=== PATIENT | female | born 1950 | race Caucasian/White ===

== ENCOUNTER 2019-03-28 19:43 | Inpatient (IN) ==
[2019-03-28] MEDS ORDERED: Ondansetron 4 MG/2 ML VIAL IVP ONE (20:00)
[2019-03-28] MEDS ORDERED: 0.9 % Sodium Chloride 1,000 ML IVC ONE (20:00)
[2019-03-28] MEDS ORDERED: Morphine Sulfate 2 MG/ML SYRINGE IVP ONE (20:00)
--- NOTE | 2019-03-28 20:03 | Emergency Department Note ---
Disposition Clinical Impression: Diverticulitis, Perforation bowel, Intra-abdominal abscess Disposition: Admitted As Inpatient Condition: Good Referrals: Lion Graves DO [Primary Care Provider] - Forms: ED Satisfaction Letter, Work/School Release Time of Disposition: 22:16 Abdominal Pain HPI - General Chief Complaint: ED Abdominal Pain Stated Complaint: ABD Pain Time Seen by Provider: 03/28/19 19:48 Source: patient, family Mode of arrival: private vehicle Limitations: no limitations Nursing Notes Reviewed: Yes Vital Signs Reviewed: Yes - History of Present Illness HPI Narrative: 68-year-old female with a past medical history of psoriasis and diabetes that reports approximately 1 week of right lower quadrant abdominal pain that initially started as all over her lower abdominal pain including the left lower quadrant and suprapubic areas but has now localized to the right lower quadrant. She has had a decreased appetite but has been trying to get fluids including broth. She also admits diarrhea for the last week that has been constant in nature, watery, but denies blood. No hx of diverticulitis. Pt was seen by her P CP on Friday and placed on flagyl and cipro without relief. She uses a topical cream for her psoriasis. She manages her diabetes with medication. Pain Scale: 4 - Related Data Home Medications Medication Instructions Recorded Confirmed Atorvastatin [Lipitor] 10 mg PO HS 03/28/19 03/28/19 Buspirone HCl [Buspar] 5 mg PO BID 03/28/19 03/28/19 Ciprofloxacin HCl [Cipro] 500 mg PO BID 03/28/19 03/28/19 Sertraline [Zoloft] 25 mg PO DAILY 03/28/19 03/28/19 SitaGLIPtin [Januvia] 100 mg PO BID 03/28/19 03/28/19 glyBURIDE [GlyBURIDE] 5 mg PO DAILY 03/28/19 03/28/19 metFORMIN [Glucophage] 500 mg PO BID 03/28/19 03/28/19 metroNIDAZOLE [Flagyl] 500 mg PO BID 03/28/19 03/28/19 Allergies Allergy/AdvReac Type Severity Reaction Status Date / Time No Known Allergies Allergy Verified 03/28/19 19:55 Review of Systems: In addition to that documented in the HPI above, the additional ROS was obtained: Constitutional: Denies fevers or chills Eyes: Denies vision changes ENMT: Denies sore throat CV: Denies chest pain Resp: Denies SOB GI: Denies vomiting Reports RLQ abdominal pain, diarrhea, anorexia : Denies painful urination MSK: Denies recent trauma Skin: Denies new rashes Reports chronic psoriasis Neuro: Denies new numbness or tingling or weakness Endocrine: Reports 10lb weight loss over the last week Heme: Denies bleeding disorders Abdominal Pain PMH - Past Medical History Medical history: Reports: diabetes Female Surgical History: Reports: no surgical history Psychiatric history: Reports: no psych history - Social History Smoking status: Never smoker Alcohol use: Reports: none Drug use: Reports: none Physical Exam General: A&O x 3. No acute distress. Appears uncomfortable. Well developed, well nourished. Head: atraumatic, normocephalic. ENT: No conjunctival injection, no scleral icterus. PERRLA. EOMI. Oropharynx non- erythematous. mucous membranes tacky. Neuro: No focal deficits, no speech deficit, no facial droop, mentating well. BUE/BLE Str 5/5. Pulm: Lungs CTAB A/P. No wheezes, rales, ronchi. Cardio: RRR no m/r/g. Chest not tender to palpation. Abd: Soft, non-distended. Normoactive bowel sounds. Tender to palpation diffusely, worst in RLQ. Voluntary guarding in RLQ. Non rigid. Palpable mass t hat is not well defined or discrete in LLQ - could be skin thickening. Extremities: Radial pulses 2+ desi, dorsalis pedis/posterior tibialis 2+ desi. No LE edema. No cyanosis, clubbing. Skin: warm, dry, intact. Chronic psoriasis with no active outbreaks noted. Psych: Appropriate mood and affect. Answers questions appropriately. Cooperative with exam. - General Limitations: no limitations General appearance: alert Course - Consultations Consultation #1: My attending Dr. Valdivia spoke with Dr. Land from surgery who states there will be no surgical intervention at this time and recommended IV antibiotics, NPO, and they would see her on the floor. Time: 21:58 Vital Signs Temperature 97.8 F 03/28/19 19:45 Pulse Rate 92 03/28/19 19:45 Respiratory Rate 16 03/28/19 19:45 Blood Pressure 132/80 03/28/19 19:45 O2 Sat by Pulse Oximetry 96 03/28/19 19:45 Temperature 97.8 F 03/28/19 19:45 Pulse Rate 80 03/28/19 22:10 Respiratory Rate 20 03/28/19 22:10 Blood Pressure 105/52 03/28/19 22:10 O2 Sat by Pulse Oximetry 94 03/28/19 22:10 Oxygen Delivery Oxygen Delivery Room Air Abdominal Pain - MDM Narrative Medical decision making narrative: 68F with Pmhx of DM, psoriasis, that reports 1 week of RLQ that began Friday night. Pt has been on cipro/flagyl since Friday without relief. Will obtain CBC, BMP, LFTs, Lipase, CT of Abd/Pelvis. Will administer zofran and morphine. Disposition pending. 2108: Ct showed acute complicated diverticulitis with abscess formation and perforation. Will administer Zosyn, consult surgery, and admit to medicine. Surgery consult completed, see course notes for full details. 2215: Pt was admitted to Dr. De Anda, hospitalist, who agreed to accept the patient to his service. Results of the workup including any imaging and/or labwork was shared with the patient at bedside. Patient was given an opportunity to ask questions at bedside and all of their concerns were addressed. Patient verbalized understanding and agreement with plan of care. Pt remained stable while in the department. - Medical Records Medical records reviewed: Yes I reviewed the patient's medical records. - Lab Data Lab results reviewed: Yes I reviewed the patient's lab results. Result diagrams: 03/28/19 20:22 03/28/19 20:22 Lab Results 03/28/19 03/28/19 03/28/19 Range/Units 20:22 20:22 20:22 WBC 11.1 (4.3-11.1) K/mcL RBC 4.50 (3.82-4.97) M/mcL Hgb 10.3 L (11.5-15.4) g/dL Hct 34.3 L (35.3-44.9) % MCV 76.2 L (83.0-100.0) fL MCH 22.9 L (28.0-33.3) pg MCHC 30.0 L (31.6-35.5) g/dL RDW 15.1 H (11.5-14.5) % Plt Count 337 (140-400) K/mcL MPV 9.6 (9.4-12.4) fL Immature Gran % 1.1 (0-4) % Seg Neutrophils % 74.0 % Lymphocytes % 16.7 % Monocytes % 5.5 % Eosinophils % 2.3 % Basophils % 0.4 % Neutrophils # 8.2 (1.6-8.9) K/mcL Lymphocytes # 1.9 (0.6-4.6) K/mcL Monocytes # 0.6 (0.0-1.3) K/mcL Eosinophils # 0.3 (0.0-0.6) K/mcL Basophils # 0.0 (0.0-0.2) K/mcL PT (9.4-12.1) Seconds INR APTT (26.0-36.0) Seconds Sodium (136-145) mEq/L Potassium (3.5-5.1) mEq/L Chloride (98-107) mEq/L Carbon Dioxide (23-29) mEq/L BUN (8-23) mg/dL Creatinine (0.60-1.20) mg/dL Est GFR ( Amer) (> 60) Est GFR (Non-Af Amer) (> 60) BUN/Creatinine Ratio (6-26) Glucose (70-105) mg/dL Calculated Osmolality (280-300) Lactic Acid 1.8 (0.5-2.2) mmol/L Calcium (8.6-10.3) mg/dL Total Bilirubin (0.3-1.0) mg/dL Direct Bilirubin (0.0-0.2) mg/dL Indirect Bilirubin (0.0-1.2) mg/dL AST (13-39) Units/L ALT (7-52) Units/L Alkaline Phosphatase (34-104) Units/L Troponin I < 0.03 (< 0.04) ng/mL Serum Total Protein (6.4-8.9) g/dL Albumin (3.5-5.7) g/dL Globulin (2.4-3.5) g/dL Albumin/Globulin Ratio (1.1-2.2) Lipase (11-82) Units/L Urine Color (Yellow) Urine Clarity (Clear) Urine pH (5.0-8.0) pH Units Ur Specific [place] (1.010-1.025) Urine Protein (Neg-Trace) mg/dL Urine Glucose (UA) (Normal) mg/dL Urine Ketones (Negative) mg/dL Urine Blood (Negative) Urine Nitrite (Negative) Urine Bilirubin (Negative) Urine Urobilinogen (Normal) mg/dL Ur Leukocyte Esterase (Negative) Urine Microscopic RBC (0-3) per hpf Urine Microscopic WBC (0-3) per hpf Ur Squamous Epith Cells (None-Few) per lpf Uric Acid Crystals Urine Bacteria (None-Few) per hpf Hyaline Casts (None-Few) per lpf Ur Culture Indicated? (NO) 03/28/19 03/28/19 03/28/19 Range/Units 20:22 20:22 21:14 WBC (4.3-11.1) K/mcL RBC (3.82-4.97) M/mcL Hgb (11.5-15.4) g/dL Hct (35.3-44.9) % MCV (83.0-100.0) fL MCH (28.0-33.3) pg MCHC (31.6-35.5) g/dL RDW (11.5-14.5) % Plt Count (140-400) K/mcL MPV (9.4-12.4) fL Immature Gran % (0-4) % Seg Neutrophils % % Lymphocytes % % Monocytes % % Eosinophils % % Basophils % % Neutrophils # (1.6-8.9) K/mcL Lymphocytes # (0.6-4.6) K/mcL Monocytes # (0.0-1.3) K/mcL Eosinophils # (0.0-0.6) K/mcL Basophils # (0.0-0.2) K/mcL PT 12.6 H (9.4-12.1) Seconds INR 1.1 APTT 32.5 (26.0-36.0) Seconds Sodium 137 (136-145) mEq/L Potassium 3.4 L (3.5-5.1) mEq/L Chloride 108 H (98-107) mEq/L Carbon Dioxide 21 L (23-29) mEq/L BUN 9 (8-23) mg/dL Creatinine 0.71 (0.60-1.20) mg/dL Est GFR ( Amer) > 60 (> 60) Est GFR (Non-Af Amer) > 60 (> 60) BUN/Creatinine Ratio 13 (6-26) Glucose 77 (70-105) mg/dL Calculated Osmolality 281 (280-300) Lactic Acid (0.5-2.2) mmol/L Calcium 9.0 (8.6-10.3) mg/dL Total Bilirubin 0.2 L (0.3-1.0) mg/dL Direct Bilirubin 0.1 (0.0-0.2) mg/dL Indirect Bilirubin 0.1 (0.0-1.2) mg/dL AST 11 L (13-39) Units/L ALT 7 (7-52) Units/L Alkaline Phosphatase 71 (34-104) Units/L Troponin I (< 0.04) ng/mL Serum Total Protein 6.3 L (6.4-8.9) g/dL Albumin 3.3 L (3.5-5.7) g/dL Globulin 3.0 (2.4-3.5) g/dL Albumin/Globulin Ratio 1.1 (1.1-2.2) Lipase 30 (11-82) Units/L Urine Color [place] A (Yellow) Urine Clarity Clear (Clear) Urine pH 5.0 (5.0-8.0) pH Units Ur Specific [place] > 1.030 H (1.010-1.025) Urine Protein 30 H (Neg-Trace) mg/dL Urine Glucose (UA) 100 H (Normal) mg/dL Urine Ketones Trace H (Negative) mg/dL Urine Blood Negative (Negative) Urine Nitrite Positive A (Negative) Urine Bilirubin Negative (Negative) Urine Urobilinogen Normal (Normal) mg/dL Ur Leukocyte Esterase Small H (Negative) Urine Microscopic RBC 0-3 (0-3) per hpf Urine Microscopic WBC 15-30 H (0-3) per hpf Ur Squamous Epith Cells Many H (None-Few) per lpf Uric Acid Crystals Present Urine Bacteria None Seen (None-Few) per hpf Hyaline Casts Few (None-Few) per lpf Ur Culture Indicated? YES A (NO) - Radiology Data Radiology results reviewed: Yes I reviewed the patient's radiology results. Abdomen/Pelvis CT 03/28/19 20:52 IMPRESSION: 1. Acute inflammatory process in the distal sigmoid colon with diverticula compatible with acute diverticulitis, complicated by gross perforation and apparent abscess formation, however it is unclear whether there is also a loop of small bowel in this location. This could be further delineated with contrast-enhanced CT. 2. There is masslike enlargement of the sigmoid colon in this location with mildly prominent pericolonic lymph nodes. While this may be a secondary to the inflammatory process, short-term follow-up after completion of therapy with colonoscopy is recommended to exclude underlying mass. 3. 2.8 cm abdominal aortic aneurysm suspected. Bilateral common iliac artery aneurysms measuring up to 2 cm on the right and 1.5 cm on the left. Recommend follow-up every 5 years. Reference: J Vasc Surg 2009 Oct;50(4 Suppl):S2-49. D/ / Onofre Hyman / Onofre Hyman Interpreting Provider: Onofre Hyman - EKG Data EKG attestation: Yes I reviewed and interpreted this EKG. EKG results narrative: Heart rate 79, rhythm sinus, axis left. Intervals within normal limits. No ST segment elevation or depression. Baseline 100 noted in lead V5. When compared with previous EKG dated 01/19/2013 there is also a leftward axis.
[2019-03-28 20:57] LABS: Alanine Aminotransferase 7 Units/L (7-52); Albumin 3.3 g/dL (3.5-5.7); Albumin/Globulin Ratio 1.1 (1.1-2.2); Alkaline Phosphatase 71 Units/L (34-104); Aspartate Amino Transferase 11 Units/L (13-39); BUN/Creatinine Ratio 13 (6-26); Basophils % 0.4 %; Bilirubin,Direct 0.1 mg/dL (0.0-0.2); Bilirubin,Indirect 0.1 mg/dL (0.0-1.2); Bilirubin,Total 0.2 mg/dL (0.3-1.0); Blood Urea Nitrogen 9 mg/dL (8-23); Carbon Dioxide 21 mEq/L (23-29); Chloride 108 mEq/L (98-107); Eosinophils # 0.3 K/mcL (0.0-0.6); Eosinophils % 2.3 %; Glucose 77 mg/dL (70-105); Hematocrit 34.3 % (35.3-44.9); Hemoglobin 10.3 g/dL (11.5-15.4); Immature Granulocytes % 1.1 % (0-4); Lipase 30 Units/L (11-82); Lymphocytes # 1.9 K/mcL (0.6-4.6); Lymphocytes % 16.7 %; Mean Corpuscular Hemoglobin 22.9 pg (28.0-33.3); Mean Corpuscular Volume 76.2 fL (83.0-100.0); Mean Platelet Volume 9.6 fL (9.4-12.4); Monocytes # 0.6 K/mcL (0.0-1.3); Monocytes % 5.5 %; Neutrophils # 8.2 K/mcL (1.6-8.9); Osmolality,Calculated 281 (280-300); Platelet Count 337 K/mcL (140-400); Potassium 3.4 mEq/L (3.5-5.1); Red Cell Distribution Width 15.1 % (11.5-14.5); Sodium 137 mEq/L (136-145); Total Protein 6.3 g/dL (6.4-8.9); White Blood Count 11.1 K/mcL (4.3-11.1); eGFR For African Americans > 60 (> 60); eGFR For Non-African Americans > 60 (> 60)
[2019-03-28] MEDS ORDERED: Piperacillin/Tazobactam 3.375 GM in 0.9 % Sodium Chloride Mini Bag 100 ML IVPB ONE (21:12)
[2019-03-28 21:22] LABS: Bilirubin,Urine Negative (Negative); Blood,Urine Negative (Negative); Clarity,Urine Clear (Clear); Glucose,Urine (UA) 100 mg/dL (Normal); Ketones,Urine Trace mg/dL (Negative); Leukocyte Esterase,Urine Small (Negative); Nitrite,Urine Positive (Negative); Protein,Urine 30 mg/dL (Neg-Trace); Specific Gravity,Urine > 1.030 (1.010-1.025); Urobilinogen,Urine Normal (Normal)
[2019-03-28 21:24] LABS: Bacteria,Urine None Seen per hpf (None-Few); RBC,Urine 0-3 per hpf (0-3); Squamous Epithelial Cell,Urine Many per lpf (None-Few); WBC,Urine 15-30 per hpf (0-3)
[2019-03-28 21:32] LABS: Color,Urine Amber (Yellow)
[2019-03-28 21:36] LABS: INR 1.1; Prothrombin Time 12.6 Seconds (9.4-12.1)
[2019-03-28 21:39] LABS: Activated Partial Thrombo Time 32.5 Seconds (26.0-36.0)
[2019-03-28 21:48] LABS: Uric Acid Crystals,Urine Present
[2019-03-28 21:50] LABS: Hyaline Casts,Urine Few per lpf (None-Few)
--- NOTE | 2019-03-28 22:00 | Emergency Department Note ---
Disposition Clinical Impression: Diverticulitis, Perforation bowel, Intra-abdominal abscess Disposition: Admitted As Inpatient Condition: Good Forms: ED Satisfaction Letter, Work/School Release Time of Disposition: 22:00 General Adult HPI - General Chief complaint: ED Abdominal Pain Stated complaint: ABD Pain Time Seen by Provider: 03/28/19 19:48 Source: patient, family Mode of arrival: private vehicle Limitations: no limitations - History of Present Illness Pain Scale: 3 - Related Data Home Medications Medication Instructions Recorded Confirmed Atorvastatin [Lipitor] 10 mg PO HS 03/28/19 03/28/19 Buspirone HCl [Buspar] 5 mg PO BID 03/28/19 03/28/19 Ciprofloxacin HCl [Cipro] 500 mg PO BID 03/28/19 03/28/19 Sertraline [Zoloft] 25 mg PO DAILY 03/28/19 03/28/19 SitaGLIPtin [Januvia] 100 mg PO BID 03/28/19 03/28/19 glyBURIDE [GlyBURIDE] 5 mg PO DAILY 03/28/19 03/28/19 metFORMIN [Glucophage] 500 mg PO BID 03/28/19 03/28/19 metroNIDAZOLE [Flagyl] 500 mg PO BID 03/28/19 03/28/19 Allergies Allergy/AdvReac Type Severity Reaction Status Date / Time No Known Allergies Allergy Verified 03/28/19 19:55 Past Medical History - Past Medical History Medical history: Reports: diabetes Psychiatric history: Reports: no psych history - Social History Smoking Status: Never smoker Smokeless Tobacco Status: No Alcohol use: Reports: none Drug use: Reports: none Physical Exam - General Limitations: no limitations General appearance: alert Course - Consultations Consultation #1: discussed case with surgery Dr. Land and he does think this patient requires surgical intervention at this time. He will see in consult with admission to [facility]. Time: 21:59 Vital Signs Temperature 97.8 F 03/28/19 19:45 Pulse Rate 92 03/28/19 19:45 Respiratory Rate 16 03/28/19 19:45 Blood Pressure 132/80 03/28/19 19:45 O2 Sat by Pulse Oximetry 96 03/28/19 19:45 Temperature 97.8 F 03/28/19 19:45 Pulse Rate 82 03/28/19 21:14 Respiratory Rate 20 03/28/19 21:14 Blood Pressure 100/48 03/28/19 21:14 O2 Sat by Pulse Oximetry 98 03/28/19 21:14 Oxygen Delivery Oxygen Delivery Room Air Medical Decision Making - Lab Data Result diagrams: 03/28/19 20:22 03/28/19 20:22 Lab Results 03/28/19 03/28/19 03/28/19 Range/Units 20:22 20:22 20:22 WBC 11.1 (4.3-11.1) K/mcL RBC 4.50 (3.82-4.97) M/mcL Hgb 10.3 L (11.5-15.4) g/dL Hct 34.3 L (35.3-44.9) % MCV 76.2 L (83.0-100.0) fL MCH 22.9 L (28.0-33.3) pg MCHC 30.0 L (31.6-35.5) g/dL RDW 15.1 H (11.5-14.5) % Plt Count 337 (140-400) K/mcL MPV 9.6 (9.4-12.4) fL Immature Gran % 1.1 (0-4) % Seg Neutrophils % 74.0 % Lymphocytes % 16.7 % Monocytes % 5.5 % Eosinophils % 2.3 % Basophils % 0.4 % Neutrophils # 8.2 (1.6-8.9) K/mcL Lymphocytes # 1.9 (0.6-4.6) K/mcL Monocytes # 0.6 (0.0-1.3) K/mcL Eosinophils # 0.3 (0.0-0.6) K/mcL Basophils # 0.0 (0.0-0.2) K/mcL PT (9.4-12.1) Seconds INR APTT (26.0-36.0) Seconds Sodium (136-145) mEq/L Potassium (3.5-5.1) mEq/L Chloride (98-107) mEq/L Carbon Dioxide (23-29) mEq/L BUN (8-23) mg/dL Creatinine (0.60-1.20) mg/dL Est GFR ( Amer) (> 60) Est GFR (Non-Af Amer) (> 60) BUN/Creatinine Ratio (6-26) Glucose (70-105) mg/dL Calculated Osmolality (280-300) Lactic Acid 1.8 (0.5-2.2) mmol/L Calcium (8.6-10.3) mg/dL Total Bilirubin (0.3-1.0) mg/dL Direct Bilirubin (0.0-0.2) mg/dL Indirect Bilirubin (0.0-1.2) mg/dL AST (13-39) Units/L ALT (7-52) Units/L Alkaline Phosphatase (34-104) Units/L Troponin I < 0.03 (< 0.04) ng/mL Serum Total Protein (6.4-8.9) g/dL Albumin (3.5-5.7) g/dL Globulin (2.4-3.5) g/dL Albumin/Globulin Ratio (1.1-2.2) Lipase (11-82) Units/L Urine Color (Yellow) Urine Clarity (Clear) Urine pH (5.0-8.0) pH Units Ur Specific [place] (1.010-1.025) Urine Protein (Neg-Trace) mg/dL Urine Glucose (UA) (Normal) mg/dL Urine Ketones (Negative) mg/dL Urine Blood (Negative) Urine Nitrite (Negative) Urine Bilirubin (Negative) Urine Urobilinogen (Normal) mg/dL Ur Leukocyte Esterase (Negative) Urine Microscopic RBC (0-3) per hpf Urine Microscopic WBC (0-3) per hpf Ur Squamous Epith Cells (None-Few) per lpf Uric Acid Crystals Urine Bacteria (None-Few) per hpf Hyaline Casts (None-Few) per lpf Ur Culture Indicated? (NO) 03/28/19 03/28/19 03/28/19 Range/Units 20:22 20:22 21:14 WBC (4.3-11.1) K/mcL RBC (3.82-4.97) M/mcL Hgb (11.5-15.4) g/dL Hct (35.3-44.9) % MCV (83.0-100.0) fL MCH (28.0-33.3) pg MCHC (31.6-35.5) g/dL RDW (11.5-14.5) % Plt Count (140-400) K/mcL MPV (9.4-12.4) fL Immature Gran % (0-4) % Seg Neutrophils % % Lymphocytes % % Monocytes % % Eosinophils % % Basophils % % Neutrophils # (1.6-8.9) K/mcL Lymphocytes # (0.6-4.6) K/mcL Monocytes # (0.0-1.3) K/mcL Eosinophils # (0.0-0.6) K/mcL Basophils # (0.0-0.2) K/mcL PT 12.6 H (9.4-12.1) Seconds INR 1.1 APTT 32.5 (26.0-36.0) Seconds Sodium 137 (136-145) mEq/L Potassium 3.4 L (3.5-5.1) mEq/L Chloride 108 H (98-107) mEq/L Carbon Dioxide 21 L (23-29) mEq/L BUN 9 (8-23) mg/dL Creatinine 0.71 (0.60-1.20) mg/dL Est GFR ( Amer) > 60 (> 60) Est GFR (Non-Af Amer) > 60 (> 60) BUN/Creatinine Ratio 13 (6-26) Glucose 77 (70-105) mg/dL Calculated Osmolality 281 (280-300) Lactic Acid (0.5-2.2) mmol/L Calcium 9.0 (8.6-10.3) mg/dL Total Bilirubin 0.2 L (0.3-1.0) mg/dL Direct Bilirubin 0.1 (0.0-0.2) mg/dL Indirect Bilirubin 0.1 (0.0-1.2) mg/dL AST 11 L (13-39) Units/L ALT 7 (7-52) Units/L Alkaline Phosphatase 71 (34-104) Units/L Troponin I (< 0.04) ng/mL Serum Total Protein 6.3 L (6.4-8.9) g/dL Albumin 3.3 L (3.5-5.7) g/dL Globulin 3.0 (2.4-3.5) g/dL Albumin/Globulin Ratio 1.1 (1.1-2.2) Lipase 30 (11-82) Units/L Urine Color [place] A (Yellow) Urine Clarity Clear (Clear) Urine pH 5.0 (5.0-8.0) pH Units Ur Specific [place] > 1.030 H (1.010-1.025) Urine Protein 30 H (Neg-Trace) mg/dL Urine Glucose (UA) 100 H (Normal) mg/dL Urine Ketones Trace H (Negative) mg/dL Urine Blood Negative (Negative) Urine Nitrite Positive A (Negative) Urine Bilirubin Negative (Negative) Urine Urobilinogen Normal (Normal) mg/dL Ur Leukocyte Esterase Small H (Negative) Urine Microscopic RBC 0-3 (0-3) per hpf Urine Microscopic WBC 15-30 H (0-3) per hpf Ur Squamous Epith Cells Many H (None-Few) per lpf Uric Acid Crystals Present Urine Bacteria None Seen (None-Few) per hpf Hyaline Casts Few (None-Few) per lpf Ur Culture Indicated? YES A (NO) Attestation Statement - Attestation Attestation: I reviewed the residents documentation and agree with the residents assessment and plan of care. I have personally had face to face time with the patient. (Brief History, Brief Exam, and MDM) I personally supervised and was present for the oneil/critical portions of the following procedures completed by the resident: EKG 68 year old female presents to the ED with complaints of abdominal pain and inabilit to tolerate PO seocndary to failing outpatinet ABX therapy for diveriticulitis. It appears on CT scan that she has acute diveriticulitis with perofration of the small bowel and [id number] abscess formation without signs of bowel obstruction. Discussed case with Dr. Land from surgery and state that nereyda will not need surgical intervention at this time. Admit to medicine with IV ABX
[2019-03-28] MEDS ORDERED: Naloxone 0.4 MG/ML INJ IVP PRN (23:44)
[2019-03-28] MEDS ORDERED: Ondansetron ODT 4 MG TAB.RAPDIS SL PRN (23:44)
[2019-03-28] MEDS ORDERED: Ringers Solution, Lactated 1,000 ML IVC SCH (23:45)
[2019-03-28] MEDS ORDERED: *HR* Dextrose 50 % in Water (Syg) 50 ML SYRINGE IVP PRN (23:49)
[2019-03-28] MEDS ORDERED: D5% in Water 1,000 ML IVC PRN (23:49)
[2019-03-28] MEDS ORDERED: Dextrose Gel 15 GM/37.5 ML TUBE PO PRN ×2 (23:49)
--- NOTE | 2019-03-28 23:51 | Internal Med History&Physical ---
Date of Encounter: 03/29/19 Time of Encounter: 23:51 Internal Medicine - H&P: HPI Chief complaint: abdominal pain Admitted From: Home Plans for Post Hospital Care: Home History of present illness: Ms. Aragon is a 68 year old female with past medical history of type 2 diabetes, hyperlipidemia, depression presented to ED for abdominal pain.Face to face encounter occurred at 11:pm. Patient reported abdominal pain occurred one week ago suddenly right-sided nonradiating sharp 10/10 at the time and no alleviating or exacerbating factor.No association of nausea, vomiting, chest pain, shortness of breath. Patient went to the PCP on Friday and was started on oral ciprofloxacin and metronidazole. Patient reported compliance with medication with improvement of the abdominal pain then suddenly today worsened symptoms and longer duration and thus came to the ED. Patient also reported after starting oral antibiotics reported diarrhea watery more than 10 times daily. Patient reported able to tolerate oral intake and medications. Reviewed patient's past medical, surgical, family and social history. Patient continues nonsmoking cord or drugs. On surgery was on the right wrist years ago, denied family history of colon cancer, diverticulitis or CA. CODE STATUS verified to be Full code. Past Med Surg Social Fam HX - Past Medical History Medical history: diabetes Psychiatric history: no psych history - Social History Smoking Status: Never smoker Smokeless Tobacco Status: No Alcohol use: none Drug use: none Internal Medicine - H&P: Meds Atorvastatin [Lipitor] 10 mg PO HS 03/28/19 [History] Buspirone HCl [Buspar] 5 mg PO BID 03/28/19 [History] Ciprofloxacin HCl [Cipro] 500 mg PO BID 03/28/19 [History] Sertraline [Zoloft] 25 mg PO DAILY 03/28/19 [History] SitaGLIPtin [Januvia] 100 mg PO BID 03/28/19 [History] glyBURIDE [GlyBURIDE] 5 mg PO DAILY 03/28/19 [History] metFORMIN [Glucophage] 500 mg PO BID 03/28/19 [History] metroNIDAZOLE [Flagyl] 500 mg PO BID 03/28/19 [History] Allergy/AdvReac Type Severity Reaction Status Date / Time No Known Allergies Allergy Verified 03/28/19 19:55 All Systems PM: A 10-system review of systems was performed and is negative for pertinent findings except as documented above in the HPI. Review of systems: General: No unintentional weightloss, No fever Head: No headahce, No injury. Ears: No discharge, No earache Eyes: No drainage, No eye pain Mouth and Throat: No new ulcers, No pain Nose and Sinus: No new congestion, No pain, Respiratory: No cough, No sputum production, No dyspnea Cardiovascular: No chest pain, No palpitations. Gastrointestinal: No nausea, No vomiting. + abdominal pain. Genital Tract: No discharge, No pain Urinary Tract: No dysuria, No discharge. MSK: No new/worsening joint pain, No new/worsening muscle ache. Endocrine: No cold intolerance, No polyuria Psychological: No suicidal, No homocidal ideation. - Constitutional Vitals: Temp Pulse Resp BP Pulse Ox 98.2 F 77 17 102/65 94 03/28/19 23:15 03/28/19 23:15 03/28/19 23:15 03/28/19 23:15 03/28/19 23:15 Exam: General Appearance: Appearing as age, well-nourished in mild acute distress. Head:Atraumatic normocephalic Skin: Normal texture, normal turgor, warm, dry. Eyes: Conjunctivae not pale with no erythema, drainage, or ulcers. Anicteric. Neck: No Lymphadenopathy in the anterior/posterior cervical chain. No thyromegaly, masses or ulcers. Trachea midline. Heart: RRR, no murmurs. Capillary refill 3 seconds. Lungs: No accessory muscle usage, lungs clear to auscultation bilaterally, no wheezes or crackles. Extremities: No pitting edema, No clubbing, No cyanosis. Abdomen: Non-distended, Normoactive bowel sounds. RLQ tender to palpation. no rovsing sign, no obturator, no hobbs sign. no guarding Neuro: AOx3 with no new sensory loss or focal deficits. MSK: Strength 5/5 Upper extremity equal bilaterally. Strength 5/5 Lower extremity equal bilaterally Internal Med - H&P Results - Labs CBC & Chem 7: 03/28/19 20:22 03/28/19 20:22 Labs: Short CBC 03/28/19 Range/Units 20:22 WBC 11.1 (4.3-11.1) K/mcL Hgb 10.3 L (11.5-15.4) g/dL Hct 34.3 L (35.3-44.9) % Plt Count 337 (140-400) K/mcL Neutrophils # 8.2 (1.6-8.9) K/mcL BMP 03/28/19 20:22 Sodium 137 Potassium 3.4 L Chloride 108 H Carbon Dioxide 21 L BUN 9 Creatinine 0.71 Glucose 77 Calcium 9.0 Cardiac Enzymes 03/28/19 Range/Units 20:22 Troponin I < 0.03 (< 0.04) ng/mL Liver Function 03/28/19 Range/Units 20:22 Total Bilirubin 0.2 L (0.3-1.0) mg/dL Direct Bilirubin 0.1 (0.0-0.2) mg/dL AST 11 L (13-39) Units/L ALT 7 (7-52) Units/L Alkaline Phosphatase 71 (34-104) Units/L Albumin 3.3 L (3.5-5.7) g/dL Urine 03/28/19 Range/Units 21:14 Urine Color Majo A (Yellow) Urine Clarity Clear (Clear) Urine pH 5.0 (5.0-8.0) pH Units Ur Specific [place] > 1.030 H (1.010-1.025) Urine Protein 30 H (Neg-Trace) mg/dL Urine Glucose (UA) 100 H (Normal) mg/dL - Impressions ITS Impressions Abdomen/Pelvis CT 03/28/19 20:52 IMPRESSION: 1. Acute inflammatory process in the distal sigmoid colon with diverticula compatible with acute diverticulitis, complicated by gross perforation and apparent abscess formation, however it is unclear whether there is also a loop of small bowel in this location. This could be further delineated with contrast-enhanced CT. 2. There is masslike enlargement of the sigmoid colon in this location with mildly prominent pericolonic lymph nodes. While this may be a secondary to the inflammatory process, short-term follow-up after completion of therapy with colonoscopy is recommended to exclude underlying mass. 3. 2.8 cm abdominal aortic aneurysm suspected. Bilateral common iliac artery aneurysms measuring up to 2 cm on the right and 1.5 cm on the left. Recommend follow-up every 5 years. Reference: J Vasc Surg 2009 Apr;50(4 Suppl):S2-49. D/ / Onofre Hyman / Onofre Hyman Interpreting Provider: Onofre Hyman - Summary of Assessment and Plan Summary of Assessment and Plan: 1.Acute complicated diverticulitis: Etiology unclear patient has not had a colonoscopy in the past however has one scheduled in April 16. Elevated with abscess and a gross perforation. Surgery on board IV Zosyn, IVF. 2.Microcytic anemia: No signs of bleeding. Anemia panel ordered. 3.Hypokalemia: replaced 4.Dehydration and malnutrition: Nutrition consultation and IVF DVT prophylaxis: Heparin Ximena: Likely more than 2 day stay - Time Spent With Patient Total time spent is greater than 38minutes 50% in coordination of care (as documented) at patient's floor/unit and/or counseling patient: Greater than 35 minutes
[2019-03-29 00:34] LABS: Basophils # 0.1 K/mcL (0.0-0.2); Basophils % 0.6 %; Eosinophils # 0.2 K/mcL (0.0-0.6); Eosinophils % 1.6 %; Hematocrit 30.9 % (35.3-44.9); Hemoglobin 9.3 g/dL (11.5-15.4); Immature Granulocytes % 1.5 % (0-4); Lymphocytes # 1.8 K/mcL (0.6-4.6); Lymphocytes % 17.2 %; Mean Corpuscular HGB Conc 30.1 g/dL (31.6-35.5); Mean Corpuscular Hemoglobin 23.4 pg (28.0-33.3); Mean Corpuscular Volume 77.8 fL (83.0-100.0); Mean Platelet Volume 9.7 fL (9.4-12.4); Monocytes # 0.5 K/mcL (0.0-1.3); Monocytes % 5.2 %; Neutrophils # 7.7 K/mcL (1.6-8.9); Platelet Count 300 K/mcL (140-400); Red Blood Count 3.97 M/mcL (3.82-4.97); Segmented Neutrophils % 73.9 %; White Blood Count 10.4 K/mcL (4.3-11.1)
[2019-03-29 00:50] LABS: BUN/Creatinine Ratio 12 (6-26); Blood Urea Nitrogen 8 mg/dL (8-23); Calcium 7.9 mg/dL (8.6-10.3); Carbon Dioxide 18 mEq/L (23-29); Chloride 113 mEq/L (98-107); Chol/HDL Ratio 2.7 (0-4.9); Cholesterol 60 mg/dL (< 200); Glucose 60 mg/dL (70-105); HDL Cholesterol 22 mg/dL (40-59); LDL Cholesterol,Calculated -9 mg/dL (0-99); Magnesium 1.7 mg/dL (1.6-2.6); Osmolality,Calculated 286 (280-300); Phosphorous 3.4 mg/dL (2.7-4.5); Potassium 3.3 mEq/L (3.5-5.1); Sodium 140 mEq/L (136-145); Triglycerides 234 mg/dL (< 150); eGFR For African Americans > 60 (> 60); eGFR For Non-African Americans > 60 (> 60)
[2019-03-29] MEDS: Insulin LISPRO 300 UNITS/3 ML VIAL SQ SCH ×4 (01:17→17:16)
[2019-03-29 05:55] LABS: Retculocyte # 0.06 M/mcL (0.05-0.10); Reticulocyte % 1.5 % (1.6-2.8)
[2019-03-29 06:10] LABS: % Iron Saturation 6 % (15-50); Iron 12 mcg/dL (50-170); Transferrin 136 mg/dL (203-362)
[2019-03-29 06:26] LABS: Ferritin 12 ng/mL (10-120)
--- NOTE | 2019-03-29 09:01 | AcuteCare Surgery Consult Note ---
Date of Encounter: 03/29/19 Time of Encounter: 07:45 Assessment and Plan (1) Diverticulitis Current Visit: Yes Status: Acute The patient appears to have acute diverticulitis associated with a diverticular abscess next to the urinary bladder. Unfortunately, this is also associated with urinary tract infection which may indicate colovesical fistula. Continue broad-spectrum antibiotics and reevaluate with CAT scan of the abdomen in 3-4 days to evaluate the abscess for resolution or progression. If the patient develops pneumaturia, cystogram or barium enema may be helpful in establishing a diagnosis History of Present Illness Consult date: 03/29/19 Reason for consult: abdominal pain History of present illness: The patient is seen and evaluated on morning rounds with the acute care surgery team. She is complaining of right lower quadrant and central abdominal pain for 1 week. She sought evaluation in the emergency room. Her white blood cell count is normal, however, CAT scan demonstrated an abscess associated with diverticulitis. The abscess is 3 cm in size. The location the abscess is adjacent to the urinary bladder raising the possibility of colovesical fistula. The patient does have a urinary tract infection. She denies pneumaturia. The patient states that her abdominal pain is better today than it was yesterday. White blood cell count remains normal. She has not previously had episodes of diverticular disease she is currently on appropriate broad-spectrum antibiotics. Next We will recommend continuing with conservative therapy and broad-spectrum antibiotics. She should have a follow-up CAT scan in the abdomen in 3-4 days to evaluate progression or resolution of the abscess. White blood cell count evaluation is less useful since she is currently in normal range. Past Med Surg Social Fam HX - Past Medical History Medical history: diabetes Additional medical history: psoriasis Psychiatric history: anxiety, depression - Social History Smoking Status: Never smoker Smokeless Tobacco Status: No Alcohol use: none Drug use: none Medications and Allergies Atorvastatin [Lipitor] 10 mg PO HS 03/28/19 [History] Buspirone HCl [Buspar] 5 mg PO BID 03/28/19 [History] Ciprofloxacin HCl [Cipro] 500 mg PO BID 03/28/19 [History] Sertraline [Zoloft] 25 mg PO DAILY 03/28/19 [History] SitaGLIPtin [Januvia] 100 mg PO BID 03/28/19 [History] glyBURIDE [GlyBURIDE] 5 mg PO DAILY 03/28/19 [History] metFORMIN [Glucophage] 500 mg PO BID 03/28/19 [History] metroNIDAZOLE [Flagyl] 500 mg PO BID 03/28/19 [History] Allergy/AdvReac Type Severity Reaction Status Date / Time No Known Allergies Allergy Verified 03/28/19 19:55 Review of Systems All systems PM: The remainder of the systems were reviewed and are negative General Surgery Exam Initial Vital Signs Temp Pulse Resp BP Pulse Ox 97.8 F 92 16 132/80 96 03/28/19 19:45 03/28/19 19:45 03/28/19 19:45 03/28/19 19:45 03/28/19 19:45 - General physical appearance well developed, well nourished, moderate pain - Neck no masses, no bruits, trachea midline, no lymphadectomy - Respiratory normal expansion, normal respiratory effort, clear to auscultation - Cardiovascular Cardiovascular exam: Present: RRR, no murmurs/rubs/gallops - Abdomen Abdomen general surgery: Present: bowel sounds present, tender Abdominal Tenderness: Present: RLQ (Mild tenderness with no involuntary guarding. No central abdominal tenderness) - Neurologic Present: CN 2-12 grossly intact, normal coordination, normal sensation - Psychiatric Psychiatric general surgery: Present: A&Ox3, oriented to person, oriented to place, oriented to time Exam Initial Vital Signs Temp Pulse Resp BP Pulse Ox 97.8 F 92 16 132/80 96 03/28/19 19:45 03/28/19 19:45 03/28/19 19:45 03/28/19 19:45 03/28/19 19:45 Results - Labs 03/29/19 00:19 03/29/19 00:19 Abnormal lab results Hgb 9.3 g/dL (11.5-15.4) L 03/29/19 00:19 Hct 30.9 % (35.3-44.9) L 03/29/19 00:19 MCV 77.8 fL (83.0-100.0) L 03/29/19 00:19 MCH 23.4 pg (28.0-33.3) L 03/29/19 00:19 MCHC 30.1 g/dL (31.6-35.5) L 03/29/19 00:19 RDW 15.0 % (11.5-14.5) H 03/29/19 00:19 Percent Retic 1.5 % (1.6-2.8) L 03/29/19 05:08 Retic Hgb Equivalent 23.6 pg (28.61-36.33) L 03/29/19 05:08 PT 12.6 Seconds (9.4-12.1) H 03/28/19 20:22 Potassium 3.3 mEq/L (3.5-5.1) L 03/29/19 00:19 Chloride 113 mEq/L (98-107) H 03/29/19 00:19 Carbon Dioxide 18 mEq/L (23-29) L 03/29/19 00:19 Glucose 60 mg/dL (70-105) L 03/29/19 00:19 Calcium 7.9 mg/dL (8.6-10.3) L 03/29/19 00:19 Iron 12 mcg/dL (50-170) L 03/29/19 05:08 % Saturation 6 % (15-50) L 03/29/19 05:08 Transferrin 136 mg/dL (203-362) L 03/29/19 05:08 Total Bilirubin 0.2 mg/dL (0.3-1.0) L 03/28/19 20:22 AST 11 Units/L (13-39) L 03/28/19 20:22 Serum Total Protein 6.3 g/dL (6.4-8.9) L 03/28/19 20:22 Albumin 3.3 g/dL (3.5-5.7) L 03/28/19 20:22 Triglycerides 234 mg/dL (< 150) H 03/29/19 00:19 LDL Cholesterol, Calc -9 mg/dL (0-99) L 03/29/19 00:19 VLDL Cholesterol, Calc 47 mg/dL (< 31) H 03/29/19 00:19 HDL Cholesterol 22 mg/dL (40-59) L 03/29/19 00:19 Urine Color Majo (Yellow) A 03/28/19 21:14 Ur Specific [place] > 1.030 (1.010-1.025) H 03/28/19 21:14 Urine Protein 30 mg/dL (Neg-Trace) H 03/28/19 21:14 Urine Glucose (UA) 100 mg/dL (Normal) H 03/28/19 21:14 Urine Ketones Trace mg/dL (Negative) H 03/28/19 21:14 Urine Nitrite Positive (Negative) A 03/28/19 21:14 Ur Leukocyte Esterase Small (Negative) H 03/28/19 21:14 Urine Microscopic WBC 15-30 per hpf (0-3) H 03/28/19 21:14 Ur Squamous Epith Cells Many per lpf (None-Few) H 03/28/19 21:14 Ur Culture Indicated? YES (NO) A 03/28/19 21:14 Diabetes panel 03/28/19 03/29/19 Range/Units 20:22 00:19 Sodium 137 140 (136-145) mEq/L Potassium 3.4 L 3.3 L (3.5-5.1) mEq/L Chloride 108 H 113 H (98-107) mEq/L Carbon Dioxide 21 L 18 L (23-29) mEq/L BUN 9 8 (8-23) mg/dL Creatinine 0.71 0.67 (0.60-1.20) mg/dL Glucose 77 60 L (70-105) mg/dL Calcium 9.0 7.9 L (8.6-10.3) mg/dL AST 11 L (13-39) Units/L ALT 7 (7-52) Units/L Alkaline Phosphatase 71 (34-104) Units/L Albumin 3.3 L (3.5-5.7) g/dL Triglycerides 234 H (< 150) mg/dL HDL Cholesterol 22 L (40-59) mg/dL Calcium panel 03/28/19 03/29/19 Range/Units 20:22 00:19 Calcium 9.0 7.9 L (8.6-10.3) mg/dL Phosphorus 3.4 (2.7-4.5) mg/dL Albumin 3.3 L (3.5-5.7) g/dL Pituitary panel 03/28/19 03/29/19 Range/Units 20:22 00:19 Sodium 137 140 (136-145) mEq/L Potassium 3.4 L 3.3 L (3.5-5.1) mEq/L Chloride 108 H 113 H (98-107) mEq/L Carbon Dioxide 21 L 18 L (23-29) mEq/L BUN 9 8 (8-23) mg/dL Creatinine 0.71 0.67 (0.60-1.20) mg/dL Glucose 77 60 L (70-105) mg/dL Calcium 9.0 7.9 L (8.6-10.3) mg/dL Adrenal panel 03/28/19 03/29/19 Range/Units 20:22 00:19 Sodium 137 140 (136-145) mEq/L Potassium 3.4 L 3.3 L (3.5-5.1) mEq/L Chloride 108 H 113 H (98-107) mEq/L Carbon Dioxide 21 L 18 L (23-29) mEq/L BUN 9 8 (8-23) mg/dL Creatinine 0.71 0.67 (0.60-1.20) mg/dL Glucose 77 60 L (70-105) mg/dL Calcium 9.0 7.9 L (8.6-10.3) mg/dL Total Bilirubin 0.2 L (0.3-1.0) mg/dL AST 11 L (13-39) Units/L ALT 7 (7-52) Units/L Alkaline Phosphatase 71 (34-104) Units/L Albumin 3.3 L (3.5-5.7) g/dL All other labs normal. - Imaging CT scan - abdomen: image reviewed (I personally reviewed the CAT scan and the abdomen. Findings are consistent with diverticulitis with diverticular abscess adjacent to the urinary bladder. The abscess is about 3 cm in size. On initial evaluation, the abscess does not appear amenable to CAT scan drainage) Consult Discharge Plan - Plan Referrals: ColopyLion DO [Primary Care Provider] -
[2019-03-29 09:06] LABS: Estimated Average Glucose 192 mg/dl
[2019-03-29] MEDS: MetroNIDAZOLE 500 MG/100 ML 500 MG/100 ML BAG IVPB SCH ×2 (09:15→17:07)
[2019-03-29] MEDS: 0.9 % Sodium Chloride w KCl 40 MEQ/1,000 ML MLS IVC SCH ×2 (09:29→17:08)
[2019-03-29] MEDS ORDERED: *HR* OxyCODONE Immed Rel 5 MG TABLET PO PRN (11:56)
[2019-03-29] MEDS ORDERED: Acetaminophen 325 MG TABLET PO PRN (11:56)
--- NOTE | 2019-03-29 12:09 | Internal Med Progress Note ---
Hospitalist Progress Note - Encounter Date of Encounter: 03/29/19 Time of Encounter: 10:20 - Subjective Interval History: Seen at bedside. Mention improvement in the pain in the abdomen. Was seen by surgery in the morning as recommended conservative management. Denies fever, chills, rigors. Denies nausea, vomiting, diarrhea. Did not have a bowel mov ement today. Denies any chest pain or shortness. No other overnight events. - Exam Vitals: Temp Pulse Resp BP Pulse Ox 98.2 F 72 15 100/62 94 03/29/19 10:52 03/29/19 10:52 03/29/19 10:52 03/29/19 10:52 03/29/19 10:00 Exam: General: Alert and oriented, no physical distress, able to follow commands. HEENT: No thyromegaly, no lymphadenopathy, no discharge. Eyes: No discharge. Normal conjuctiva, no icterus Respiratory: Normal vesicular breathing, no added sounds, breathing equal in both sides. CVS: Normal heart sounds, no murmurs, regular rhthm, no edema Extremities: No peripheral edema, peripheral pulses intact. Lymph nodes: No lymphadenopathy Gastrointestinal: Soft, mild tenderness in the lwft lower abdomen abdomen, normal abdominal sounds. No distention noted. No rigidity, no rebound ten derness Genitourinary: No paravertebral tenderness. Skin: No rash, ulcers or wound. Neurological: Alert and oriented. No focal deficits. Cranial nerves II-XII intact. - Assessment and Plan (1) Diverticulitis Current Visit: Yes Status: Acute Assessment and Plan: Complicated diverticulitis. Etiology unclear. CT scan evidence of gross perforation with abscess formation. No colonoscopy on file Concerns for colovesical fistula. Continue ciprofloxacin and metronidazole IV. Surgery on board. At this point, plan is for the conservative management. Nothing by mouth. Diet management as per surgery. Supportive management wiht the IV fludis Pain management. (2) Intra-abdominal abscess Current Visit: Yes Status: Acute Assessment and Plan: Management plan mentioned above. (3) Diabetes mellitus Current Visit: Yes Status: Acute Assessment and Plan: Blood glucose gallop 60 in the morning. She was given dextrose. Continue blood glucose monitoring. (4) Hypokalemia Current Visit: Yes Status: Acute Assessment and Plan: Potassium noted to be 3.3. Continue potassium with IV fluids. (5) Perforation bowel Current Visit: Yes Status: Acute - Time Spent with Patient Total time spent is greater than 50% in coordination of care (as documented) at patient's floor/unit and/or counseling patient: Internal Medicine: Result - Labs CBC & Chem 7: 03/29/19 00:19 03/29/19 00:19 Labs: Short CBC 03/28/19 03/29/19 Range/Units 20:22 00:19 WBC 11.1 10.4 (4.3-11.1) K/mcL Hgb 10.3 L 9.3 L (11.5-15.4) g/dL Hct 34.3 L 30.9 L (35.3-44.9) % Plt Count 337 300 (140-400) K/mcL Neutrophils # 8.2 7.7 (1.6-8.9) K/mcL BMP 03/28/19 03/29/19 20:22 00:19 Sodium 137 140 Potassium 3.4 L 3.3 L Chloride 108 H 113 H Carbon Dioxide 21 L 18 L BUN 9 8 Creatinine 0.71 0.67 Glucose 77 60 L Calcium 9.0 7.9 L Cardiac Enzymes 03/28/19 03/29/19 Range/Units 20:22 00:19 Troponin I < 0.03 < 0.03 (< 0.04) ng/mL Liver Function 03/28/19 Range/Units 20:22 Total Bilirubin 0.2 L (0.3-1.0) mg/dL Direct Bilirubin 0.1 (0.0-0.2) mg/dL AST 11 L (13-39) Units/L ALT 7 (7-52) Units/L Alkaline Phosphatase 71 (34-104) Units/L Albumin 3.3 L (3.5-5.7) g/dL Urine 03/28/19 Range/Units 21:14 Urine Color Majo A (Yellow) Urine Clarity Clear (Clear) Urine pH 5.0 (5.0-8.0) pH Units Ur Specific [place] > 1.030 H (1.010-1.025) Urine Protein 30 H (Neg-Trace) mg/dL Urine Glucose (UA) 100 H (Normal) mg/dL - ABG Interpretation ABG results: PT/INR, D-dimer PT 12.6 Seconds (9.4-12.1) H 03/28/19 20:22 - Impressions Impressions Abdomen/Pelvis CT 03/28/19 20:52 IMPRESSION: 1. Acute inflammatory process in the distal sigmoid colon with diverticula compatible with acute diverticulitis, complicated by gross perforation and apparent abscess formation, however it is unclear whether there is also a loop of small bowel in this location. This could be further delineated with contrast-enhanced CT. 2. There is masslike enlargement of the sigmoid colon in this location with mildly prominent pericolonic lymph nodes. While this may be a secondary to the inflammatory process, short-term follow-up after completion of therapy with colonoscopy is recommended to exclude underlying mass. 3. 2.8 cm abdominal aortic aneurysm suspected. Bilateral common iliac artery aneurysms measuring up to 2 cm on the right and 1.5 cm on the left. Recommend follow-up every 5 years. Reference: J Vasc Surg 2009 Oct;50(4 Suppl):S2-49. D/ / Onofre Hyman / Onofre Hyman Interpreting Provider: Onofre Hyman Consult Discharge Plan - Plan Referrals: Lion Graves DO [Primary Care Provider] -
[2019-03-29] MEDS: *HR* HYDROcodone/Acet 5/325 mg TABLET PO PRN ×2 (14:23→20:42)
[2019-03-29] MEDS: Potassium Chloride 30 MEQ in D5% in 0.9% NACL 1,000 ML IVC SCH (20:38)
[2019-03-30] MEDS: MetroNIDAZOLE 500 MG/100 ML 500 MG/100 ML BAG IVPB SCH ×3 (02:42→15:54)
[2019-03-30] MEDS: Insulin LISPRO 300 UNITS/3 ML VIAL SQ SCH ×4 (02:54→21:03)
[2019-03-30 04:55] LABS: Basophils # 0.1 K/mcL (0.0-0.2); Basophils % 0.7 %; Eosinophils # 0.2 K/mcL (0.0-0.6); Eosinophils % 3.5 %; Hematocrit 31.8 % (35.3-44.9); Hemoglobin 9.5 g/dL (11.5-15.4); Immature Granulocytes % 1.2 % (0-4); Lymphocytes # 1.2 K/mcL (0.6-4.6); Lymphocytes % 17.4 %; Mean Corpuscular HGB Conc 29.9 g/dL (31.6-35.5); Mean Corpuscular Hemoglobin 23.1 pg (28.0-33.3); Mean Corpuscular Volume 77.4 fL (83.0-100.0); Mean Platelet Volume 9.5 fL (9.4-12.4); Monocytes # 0.5 K/mcL (0.0-1.3); Monocytes % 6.6 %; Neutrophils # 4.8 K/mcL (1.6-8.9); Platelet Count 283 K/mcL (140-400); Red Blood Count 4.11 M/mcL (3.82-4.97); Red Cell Distribution Width 15.3 % (11.5-14.5); Segmented Neutrophils % 70.6 %; White Blood Count 6.9 K/mcL (4.3-11.1)
[2019-03-30 05:17] LABS: BUN/Creatinine Ratio 4 (6-26); Blood Urea Nitrogen 2 mg/dL (8-23); Calcium 8.1 mg/dL (8.6-10.3); Carbon Dioxide 21 mEq/L (23-29); Chloride 116 mEq/L (98-107); Glucose 136 mg/dL (70-105); Osmolality,Calculated 288 (280-300); Potassium 4.2 mEq/L (3.5-5.1); Sodium 140 mEq/L (136-145); eGFR For African Americans > 60 (> 60); eGFR For Non-African Americans > 60 (> 60)
[2019-03-30] MEDS ORDERED: Ringers Solution, Lactated 500 ML IVC ONE (07:33)
[2019-03-30] MEDS: Potassium Chloride 30 MEQ in D5% in 0.9% NACL 1,000 ML IVC SCH (07:40)
--- NOTE | 2019-03-30 09:49 | Electrocardiograph Report ---
[facility] Test Date: 2019-03-28 Pat Name: Alysa Aragon Department: [id number] Room: 3A42 Gender: Licensed [employer]: : 1950 Requested By: Clarisa Pugh Order Number: [id number] Reading MD: Fabricio Segovia Measurements Intervals [place] Rate: 79 P: 63 IL: 144 QRS: -25 QRSD: 88 T: 24 QT: 401 QTc: 460 Interpretive Statements Sinus rhythm Borderline left axis deviation Electronically Signed On 03-30-2019 9:47:28 EDT by Fabricio Segovia
[2019-03-30] MEDS: Ringers Solution, Lactated 1,000 ML IVC SCH (11:37)
--- NOTE | 2019-03-30 11:37 | Internal Med Progress Note ---
Hospitalist Progress Note - Encounter Date of Encounter: 03/30/19 Time of Encounter: 08:50 - Subjective Interval History: Patient was seen at bedside. Denies fever, chills, rigors. Feeling better than yesterday. Feels that her abdominal pain is much better almost gone. Denies nausea, vomiting, diarrhea. No other overnight events. - Exam Vitals: Temp Pulse Resp BP Pulse Ox 98.0 F 72 16 106/63 95 03/30/19 11:30 03/30/19 11:30 03/30/19 11:30 03/30/19 11:30 03/30/19 11:30 Exam: General: Alert and oriented, no physical distress, able to follow commands. Respiratory: Normal vesicular breathing, no added sounds, breathing equal in both sides. CVS: Normal heart sounds, no murmurs, regular rhthm, no edema Extremities: No peripheral edema, peripheral pulses intact. Lymph nodes: No lymphadenopathy Gastrointestinal: Soft, non tender, non rigid. No distention noted. No rigidity, no rebound tenderness Genitourinary: No paravertebral tenderness. Skin: No rash, ulcers or wound. Neurological: Alert and oriented. No focal deficits. Cranial nerves II-XII intact. - Assessment and Plan (1) Diverticulitis Current Visit: Yes Status: Acute Assessment and Plan: Improving. CT scan evidence of gross perforation with abscess formation. Continue ciprofloxacin and metronidazole IV. Surgery on board. At this point, plan is for the conservative management. Nothing by mouth. Diet management as per surgery. Supportive management wiht the IV fludis Pain management. Repeat CT scan as per surgery, (2) Intra-abdominal abscess Current Visit: Yes Status: Acute Assessment and Plan: Management plan mentioned above. (3) Diabetes mellitus Current Visit: Yes Status: Acute Assessment and Plan: Due to low blood glucose levels, patient was started on D5 normal saline yesterday. Her blood glucose levels have been better. She might be started b ack on diet. At this point, switch her fluids to Ringer lactate. (4) Hypokalemia Current Visit: Yes Status: Acute Assessment and Plan: Resolved Likel dietary deficienc (5) Perforation bowel Current Visit: Yes Status: Acute (6) Hypotension Current Visit: Yes Status: Acute Assessment and Plan: BP was low in the morning Pt was asymptomatic Etiolgoy unclear Seems like baseline low pressures Will give 500 ml of IV bolus Continue IV fluids (7) Depression Current Visit: Yes Status: Acute Assessment and Plan: Continue home meds - Time Spent with Patient Total time spent is greater than 50% in coordination of care (as documented) at patient's floor/unit and/or counseling patient: Internal Medicine: Result - Labs CBC & Chem 7: 03/30/19 04:38 03/30/19 04:38 Labs: Short CBC 03/30/19 Range/Units 04:38 WBC 6.9 (4.3-11.1) K/mcL Hgb 9.5 L (11.5-15.4) g/dL Hct 31.8 L (35.3-44.9) % Plt Count 283 (140-400) K/mcL Neutrophils # 4.8 (1.6-8.9) K/mcL BMP 03/30/19 04:38 Sodium 140 Potassium 4.2 Chloride 116 H Carbon Dioxide 21 L BUN 2 L Creatinine 0.53 L Glucose 136 H Calcium 8.1 L - ABG Interpretation ABG results: PT/INR, D-dimer PT 12.6 Seconds (9.4-12.1) H 03/28/19 20:22 Consult Discharge Plan - Plan Referrals: Lion Graves DO [Primary Care Provider] - (6) Hypotension Qualifiers: Hypotension type: idiopathic hypotension Qualified Code(s): I95.0 - Idiopathic hypotension (7) Depression Qualifiers: Depression Type: unspecified Qualified Code(s): F32.9 - Major depressive disorder, single episode, unspecified
[2019-03-30] MEDS ORDERED: Isovue-370 500 ML BOTTLE IVP ONE (15:42)
--- NOTE | 2019-03-30 17:16 | AcuteCareSurgery Progress Note ---
Date of Encounter: 03/30/19 Time of Encounter: 08:00 - Assessment and Plan (1) Diverticulitis Current Visit: Yes Status: Acute Pt responding well to IV abx. Pain is resolved. Will start clear liquid diet today. Continue to follow. (2) Intra-abdominal abscess Current Visit: Yes Status: Acute (3) Diabetes mellitus Current Visit: Yes Status: Acute Qualifiers: Diabetes mellitus type: type 2 Diabetes mellitus assisted insulin use: without assisted use Qualified Code(s): E11.9 - Type 2 diabetes mellitus without complications Subjective Patient reports: no new complaints, feels better, still having pain, pain is less, no flatus, bowel movement, afebrile Objective Vital Signs - Last 8 Hours Temp Pulse Resp BP Pulse Ox 03/30/19 15:45 98.2 F 72 16 112/71 95 03/30/19 11:30 98.0 F 72 16 106/63 95 Intake and Output 03/30/19 03/30/19 03/30/19 07:59 15:59 23:59 Intake Total 1315 / 3930 2615 / 3930 Output Total 650 / 650 Balance 1315 / 3280 1965 / 3280 Intake: IV Fluids 1315 / 3930 2615 / 3930 KCl 40 mEq in 0.9% Sodium 1000 / 1000 Chloride 40 meq In 1,000 ml @ 125 mls/hr IVC .Q8H [facility] Rx#: [id number] Potassium Chloride 30 MEQ In D5 1015 / 2030 1015 / 2030 % And 0.9% Nacl 1000 Ml 1,000 ML @ 100 mls/hr IVC .Q10H9M [facility] Rx#:[id number] Lactated Ringers 500 ML @ 1000 500 / 500 mls/hr IVC .Q30M ONE Rx#: [id number] Cipro Premix 400 MG/200 ML 400 200 / 200 mg In 200 ml @ 200 mls/hr IVPB Q12HR [facility] Rx#:[id number] Flagyl Premix 500 MG/100 ML 500 100 / 200 100 / 200 mg In 100 ml @ 100 mls/hr IVPB Q8HR [facility] Rx#:[id number] Output: Urine 650 / 650 Other: Stool Size Moderate Stool Consistency soft formed Stool Color Brown # Voids 1 # Bowel Movements 1 Weight 68.2 kg Blood Glucose* 154 124 Patient Weight 03/30/19 23:59 Weight 68.2 kg - General physical appearance no distress, no pain - Eyes PERRL, normal ocular movement - ENT no congestion, dry mucosa - Neck Neck exam: trachea midline, no venous distension - Respiratory normal respiratory effort, clear to auscultation - Cardiovascular Cardiovascular exam: Present: RRR. Absent: JVD - Abdomen Abdomen: Present: bowel sounds present, soft, non tender. Absent: distended - Neurologic CN 2-12 grossly intact, normal coordination - Musculoskeletal normal posture - Psychiatric oriented to time, oriented to person, oriented to place - Labs 03/30/19 04:38 03/30/19 04:38 Diabetes panel 03/30/19 Range/Units 04:38 Sodium 140 (136-145) mEq/L Potassium 4.2 (3.5-5.1) mEq/L Chloride 116 H (98-107) mEq/L Carbon Dioxide 21 L (23-29) mEq/L BUN 2 L (8-23) mg/dL Creatinine 0.53 L (0.60-1.20) mg/dL Glucose 136 H (70-105) mg/dL Calcium 8.1 L (8.6-10.3) mg/dL Calcium panel 03/30/19 Range/Units 04:38 Calcium 8.1 L (8.6-10.3) mg/dL Pituitary panel 03/30/19 Range/Units 04:38 Sodium 140 (136-145) mEq/L Potassium 4.2 (3.5-5.1) mEq/L Chloride 116 H (98-107) mEq/L Carbon Dioxide 21 L (23-29) mEq/L BUN 2 L (8-23) mg/dL Creatinine 0.53 L (0.60-1.20) mg/dL Glucose 136 H (70-105) mg/dL Calcium 8.1 L (8.6-10.3) mg/dL Adrenal panel 03/30/19 Range/Units 04:38 Sodium 140 (136-145) mEq/L Potassium 4.2 (3.5-5.1) mEq/L Chloride 116 H (98-107) mEq/L Carbon Dioxide 21 L (23-29) mEq/L BUN 2 L (8-23) mg/dL Creatinine 0.53 L (0.60-1.20) mg/dL Glucose 136 H (70-105) mg/dL Calcium 8.1 L (8.6-10.3) mg/dL Consult Discharge Plan - Plan Referrals: Colopy,Lion Gutierrez DO [Primary Care Provider] -
[2019-03-31] MEDS: Ringers Solution, Lactated 1,000 ML IVC SCH (00:01)
[2019-03-31 05:15] LABS: Basophils # 0.1 K/mcL (0.0-0.2); Basophils % 0.8 %; Eosinophils # 0.3 K/mcL (0.0-0.6); Eosinophils % 4.1 %; Hematocrit 31.2 % (35.3-44.9); Hemoglobin 9.5 g/dL (11.5-15.4); Immature Granulocytes % 1.4 % (0-4); Lymphocytes # 1.5 K/mcL (0.6-4.6); Lymphocytes % 22.5 %; Mean Corpuscular HGB Conc 30.4 g/dL (31.6-35.5); Mean Corpuscular Hemoglobin 23.5 pg (28.0-33.3); Mean Platelet Volume 9.9 fL (9.4-12.4); Monocytes # 0.4 K/mcL (0.0-1.3); Neutrophils # 4.4 K/mcL (1.6-8.9); Platelet Count 287 K/mcL (140-400); Red Blood Count 4.05 M/mcL (3.82-4.97); Red Cell Distribution Width 15.2 % (11.5-14.5); Segmented Neutrophils % 65.2 %; White Blood Count 6.7 K/mcL (4.3-11.1)
[2019-03-31 05:35] LABS: BUN/Creatinine Ratio 4 (6-26); Blood Urea Nitrogen 2 mg/dL (8-23); Calcium 8.6 mg/dL (8.6-10.3); Carbon Dioxide 25 mEq/L (23-29); Chloride 110 mEq/L (98-107); Glucose 106 mg/dL (70-105); Osmolality,Calculated 289 (280-300); Potassium 3.6 mEq/L (3.5-5.1); Sodium 141 mEq/L (136-145); eGFR For African Americans > 60 (> 60); eGFR For Non-African Americans > 60 (> 60)
[2019-03-31] MEDS: MetroNIDAZOLE 500 MG/100 ML 500 MG/100 ML BAG IVPB SCH ×4 (08:37→23:17)
[2019-03-31] MEDS ORDERED: Isovue-370 500 ML BOTTLE PO ONE (09:00)
[2019-03-31] MEDS: Insulin LISPRO 300 UNITS/3 ML VIAL SQ SCH ×4 (09:10→21:16)
--- NOTE | 2019-03-31 10:59 | AcuteCareSurgery Progress Note ---
Date of Encounter: 03/31/19 Time of Encounter: 10:57 - Assessment and Plan (1) Diverticulitis of large intestine with abscess Current Visit: Yes Status: Acute I explained to the patient and I reviewed her CT scan of the abdomen and pelvis was performed today. The initial read states that the abscess has slightly increased in size. I reviewed this personally with the interventional radiologist who feels that the abscess actually has remained the same size. Today's CAT scan was performed with by mouth contrast while the CAT scan performed 3 days ago was performed without contrast. The borders of the abscess can be better visualized on today's scan. We will continue today with IV antibiotics and advance her to a soft food diet. If she tolerates this overnight then we will discharge her home tomorrow with close follow-up and repeat CAT scan probably next week. Qualifiers: Diverticulitis bleeding: without bleeding Qualified Code(s): K57.20 - Diverticulitis of large intestine with perforation and abscess without bleeding Subjective Patient reports: other (The patient states she has no abdominal pain. No nausea or vomiting. Positive flatus) Objective Vital Signs - Last 8 Hours Temp Pulse Resp BP Pulse Ox 03/31/19 10:16 97.5 F L 65 15 126/73 93 03/31/19 06:22 98.0 F 60 16 128/78 97 03/31/19 04:15 98.4 F 68 17 115/74 97 Intake and Output 03/30/19 03/31/19 03/31/19 23:59 07:59 15:59 Intake Total 300 / 4230 1100 / 1100 Output Total 0 / 0 0 / 0 Balance 300 / 3580 1100 / 1100 0 / 1100 Intake: IV Fluids 300 / 4230 1100 / 1100 Lactated Ringers 1,000 ML @ 50 1000 / 1000 mls/hr IVC .Q20H [facility] Rx#: [id number] Cipro Premix 400 MG/200 ML 400 200 / 400 mg In 200 ml @ 200 mls/hr IVPB Q12HR [facility] Rx#:[id number] Flagyl Premix 500 MG/100 ML 500 100 / 300 100 / 100 mg In 100 ml @ 100 mls/hr IVPB Q8HR [facility] Rx#:[id number] Output: Urine 0 / 0 0 / 0 Other: Weight 68.7 kg Blood Glucose* 136 129 Patient Weight 03/31/19 23:59 Weight 68.7 kg - General physical appearance well nourished, no distress - Eyes PERRL, normal ocular movement - Abdomen Abdomen: Present: bowel sounds present, soft, non tender - Labs 03/31/19 04:40 03/31/19 04:40 Diabetes panel 03/31/19 Range/Units 04:40 Sodium 141 (136-145) mEq/L Potassium 3.6 (3.5-5.1) mEq/L Chloride 110 H (98-107) mEq/L Carbon Dioxide 25 (23-29) mEq/L BUN 2 L (8-23) mg/dL Creatinine 0.53 L (0.60-1.20) mg/dL Glucose 106 H (70-105) mg/dL Calcium 8.6 (8.6-10.3) mg/dL Calcium panel 03/31/19 Range/Units 04:40 Calcium 8.6 (8.6-10.3) mg/dL Pituitary panel 03/31/19 Range/Units 04:40 Sodium 141 (136-145) mEq/L Potassium 3.6 (3.5-5.1) mEq/L Chloride 110 H (98-107) mEq/L Carbon Dioxide 25 (23-29) mEq/L BUN 2 L (8-23) mg/dL Creatinine 0.53 L (0.60-1.20) mg/dL Glucose 106 H (70-105) mg/dL Calcium 8.6 (8.6-10.3) mg/dL Adrenal panel 03/31/19 Range/Units 04:40 Sodium 141 (136-145) mEq/L Potassium 3.6 (3.5-5.1) mEq/L Chloride 110 H (98-107) mEq/L Carbon Dioxide 25 (23-29) mEq/L BUN 2 L (8-23) mg/dL Creatinine 0.53 L (0.60-1.20) mg/dL Glucose 106 H (70-105) mg/dL Calcium 8.6 (8.6-10.3) mg/dL Consult Discharge Plan - Plan Referrals: Lion Graves DO [Primary Care Provider] -
[2019-03-31] MEDS ORDERED: Insulin LISPRO 300 UNITS/3 ML VIAL SQ ONE (12:01)
--- NOTE | 2019-03-31 14:37 | Internal Med Progress Note ---
Hospitalist Progress Note - Encounter Date of Encounter: 03/31/19 Time of Encounter: 14:35 - Subjective Interval History: Patient seen and examined. Patient notes no acute events overnight. Tolerating PO intake well. No abdominal pain. - Exam Vitals: Temp Pulse Resp BP Pulse Ox 98.3 F 87 16 101/64 95 03/31/19 14:23 03/31/19 14:23 03/31/19 14:23 03/31/19 14:23 03/31/19 14:23 Exam: General: Alert and oriented, no physical distress, able to follow commands. Respiratory: Normal vesicular breathing, no added sounds, breathing equal in both sides. CVS: Normal heart sounds, no murmurs, regular rhthm, no edema Extremities: No peripheral edema, peripheral pulses intact. Lymph nodes: No lymphadenopathy Gastrointestinal: Soft, non tender, non rigid. No distention noted. No rigidity, no rebound tenderness Genitourinary: No paravertebral tenderness. Skin: No rash, ulcers or wound. Neurological: Alert and oriented. No focal deficits. Cranial nerves II-XII intact. - Assessment and Plan (1) Diverticulitis Current Visit: Yes Status: Acute Assessment and Plan: Improving. CT scan evidence of gross perforation with abscess formation. Repeat CT scan shows no improvement or worsening Continue ciprofloxacin and metronidazole IV. Surgery on board: if tolerating diet tomorrow, transition to oral abx and d/c with repeat CT next week At this point, plan is for continued conservative management. Advance diet as tolerated Stop fluids as patient tolerating PO intake Pain management. (2) Intra-abdominal abscess Current Visit: Yes Status: Acute Assessment and Plan: Management plan mentioned above. (3) Diabetes mellitus Current Visit: Yes Status: Acute Assessment and Plan: Blood sugars stable Continue sliding scale insulin as patient is transitioned back to usual diet (4) Hypokalemia Current Visit: Yes Status: Acute Assessment and Plan: Resolved Likel dietary deficiency (5) Perforation bowel Current Visit: Yes Status: Acute (6) Hypotension Current Visit: Yes Status: Acute Assessment and Plan: BP was low yesterday but appears to have come up with IVF; still on lower end of normal Plan: monitor (7) Depression Current Visit: Yes Status: Acute Assessment and Plan: Continue home meds - Time Spent with Patient Total time spent is greater than 50% in coordination of care (as documented) at patient's floor/unit and/or counseling patient: 40 minutes Internal Medicine: Result - Labs CBC & Chem 7: 03/31/19 04:40 03/31/19 04:40 Labs: Short CBC 03/31/19 Range/Units 04:40 WBC 6.7 (4.3-11.1) K/mcL Hgb 9.5 L (11.5-15.4) g/dL Hct 31.2 L (35.3-44.9) % Plt Count 287 (140-400) K/mcL Neutrophils # 4.4 (1.6-8.9) K/mcL BMP 03/31/19 04:40 Sodium 141 Potassium 3.6 Chloride 110 H Carbon Dioxide 25 BUN 2 L Creatinine 0.53 L Glucose 106 H Calcium 8.6 - ABG Interpretation ABG results: PT/INR, D-dimer PT 12.6 Seconds (9.4-12.1) H 03/28/19 20:22 - Impressions Impressions Abdomen/Pelvis CT 03/31/19 09:18 IMPRESSION: 1. Persistent circumferential mass-like thickening of the sigmoid colon on the background of diverticulosis. Although this may represent diverticulitis, underlying sigmoid mass is also in the differential. Unless patient has had a recent colonoscopy, colonoscopy is recommended following resolution of acute issues. 2. Persistent abscess in the pelvis, inseparable from the sigmoid colon, likely secondary to a contained perforation. Abscess measures 3.7 x 3.6 cm, compared to 3.2 x 3.2 cm on the prior CT of 03/28/2019. 3. No evidence of bowel obstruction or extraluminal contrast. D/ / 03/31/2019 11:02:16 Randal Leo MD / fletcher Interpreting Provider: Randal Leo MD Consult Discharge Plan - Plan Referrals: Lion Graves DO [Primary Care Provider] - (3) Diabetes mellitus Qualifiers: Diabetes mellitus type: type 2 Diabetes mellitus laborer marine terminal insulin use: without laborer marine terminal use Qualified Code(s): E11.9 - Type 2 diabetes mellitus without complications (6) Hypotension Qualifiers: Hypotension type: idiopathic hypotension Qualified Code(s): I95.0 - Idiopat hic hypotension (7) Depression Qualifiers: Depression Type: unspecified Qualified Code(s): F32.9 - Major depressive disorder, single episode, unspecified
[2019-04-01] MEDS: MetroNIDAZOLE 500 MG/100 ML 500 MG/100 ML BAG IVPB SCH (08:41)
[2019-04-01] MEDS: Insulin LISPRO 300 UNITS/3 ML VIAL SQ SCH (08:42)
--- NOTE | 2019-04-01 08:59 | AcuteCareSurgery Progress Note ---
<Maira Gonzalez - Last Filed: 04/01/19 08:56> Date of Encounter: 04/01/19 Time of Encounter: 08:56 - Assessment and Plan (1) Diverticulitis of large intestine with abscess Status: Acute OK to d/c from a surgical standpoint on oral cipro/flagyl for 7 days, high-fiber diverticulitis diet, metamucil caplets (2 twice daily) or benefiber twice daily. Follow-up with Dr. Land in one week. CT of abd/pelvis with oral and iv contrast prior to appt (order has been placed. Ideally this should be schedule in the AM of april 12 as she will see Dr. Land at 1405 that day). Qualifiers: Diverticulitis bleeding: without bleeding Qualified Code(s): K57.20 - Diverticulitis of large intestine with perforation and abscess without bleeding Subjective Patient reports: no new complaints, feels better, pain is less, tolerating a regular diet, voiding w/o difficulty, flatus, bowel movement, afebrile Objective Vital Signs - Last 8 Hours Temp Pulse Resp BP Pulse Ox 04/01/19 07:13 98.2 F 66 16 107/67 93 04/01/19 03:50 97.8 F 66 16 120/72 96 Intake and Output 03/31/19 04/01/19 04/01/19 23:59 07:59 15:59 Intake Total 540 / 2080 100 / 100 Output Total 200 / 200 Balance 340 / 1880 100 / 100 Intake: IV Fluids 300 / 1600 100 / 100 Cipro Premix 400 MG/200 ML 400 200 / 400 mg In 200 ml @ 200 mls/hr IVPB Q12HR [facility] Rx#:[id number] Flagyl Premix 500 MG/100 ML 500 100 / 200 100 / 100 mg In 100 ml @ 100 mls/hr IVPB Q8HR [facility] Rx#:[id number] Oral 240 / 480 Output: Urine 200 / 200 Other: Meal Dinner Percent of Meal Consumed 100% Weight 70 kg Blood Glucose* 161 206 Patient Weight 04/01/19 23:59 Weight 70 kg - General physical appearance well nourished, no distress, no pain - ENT atraumatic, normocephalic - Neck Neck exam: trachea midline - Abdomen Abdomen: Present: bowel sounds present, soft, non tender - Integumentary no rash - Neurologic normal sensation - Musculoskeletal normal posture - Psychiatric oriented to time, oriented to person, oriented to place - Labs 03/31/19 04:40 03/31/19 04:40 Consult Discharge Plan - Plan Instructions: Diverticulitis (DC) Referrals: Ely,Lion Gutierrez DO [Primary Care Provider] - (Office requires patient to call and schedule hospital follow up upon discharge. Thank you) Ronaldo Land MD [Partnered Physician] - 04/12/19 2:05 pm Prescriptions: Ciprofloxacin [Cipro] 500 mg PO BID #13 tablet Prescription Printed metroNIDAZOLE [Flagyl] 500 mg PO TID #20 tablet Prescription Printed <Patricio Ag - Last Filed: 04/01/19 16:57> Date of Encounter: 04/01/19 - Assessment and Plan (1) Diverticulitis Status: Acute Objective Intake and Output 04/01/19 04/01/19 04/01/19 07:59 15:59 23:59 Intake Total 100 / 460 360 / 460 Balance 100 / 460 360 / 460 Intake: IV Fluids 100 / 100 Flagyl Premix 500 MG/100 ML 500 100 / 100 mg In 100 ml @ 100 mls/hr IVPB Q8HR [facility] Rx#:[id number] Oral 360 / 360 Other: Meal Breakfast Percent of Meal Consumed 100% Weight 70 kg Blood Glucose* 206 Patient Weight 04/01/19 23:59 Weight 70 kg - Labs 03/31/19 04:40 03/31/19 04:40 - Attending Attestation I have personally performed a face to face evaluation on this patient. I have reviewed and agree with the care plan. History and Exam by me shows: The patient is seen and evaluated on morning rounds with the acute care surgery team. She has a stable abscess next to the bladder in the superior portion of the pelvis. The patient is afebrile and her white blood cell count is normal. There is been no change in the abscess. This is not amenable to CT drainage. The abscess is less than 5 cm in size and should resolve with antibiotic t herapy. Transition to oral antibiotics and discharged home. I will see her back in 1 week with a CAT scan of the pelvis in the acute care surgery clinic. Patricio Ag MD FACS
--- NOTE | 2019-04-01 09:08 | Discharge Summary ---
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 Aragon is a 68 year old female with PMH of DM II, HLD, depression presented with abdominal pain. Patient had been treated OP with ciprofloxacin and metronidazole. CT showed diverticulitis with abscess and perforation. Surgery was consulted and patient was started on IV flagyl and cipro and conservative management. Patient improved during stay. Repeat CT 3 days later showed no change. Patient tolerated PO diet well and was pain free on day of discharge. Surgery cleared patient for discharge with repeat CT and f/u in 1 week. Patient was clinically stable on day of discharge. She was sent home with prescription for oral cipro and flagyl to complete 10 day course. - Time Spent with Patient Total time spent providing and/or coordinating discharge services: 40 minutes - Discharge Medications Prescriptions: New Ciprofloxacin [Cipro] 500 mg PO BID #13 tablet metroNIDAZOLE [Flagyl] 500 mg PO TID #20 tablet Continued glyBURIDE [GlyBURIDE] 5 mg PO BID SitaGLIPtin [Januvia] 100 mg PO DAILY metFORMIN [Glucophage] 500 mg PO DAILY Atorvastatin [Lipitor] 10 mg PO HS Sertraline [Zoloft] 100 mg PO DAILY Buspirone HCl [Buspar] 10 mg PO BID Home Medications: Atorvastatin [Lipitor] 10 mg PO HS 03/28/19 [History] SitaGLIPtin [Januvia] 100 mg PO DAILY 03/28/19 [History] glyBURIDE [GlyBURIDE] 5 mg PO BID 03/28/19 [History] metFORMIN [Glucophage] 500 mg PO DAILY 03/28/19 [History] Buspirone HCl [Buspar] 10 mg PO BID 03/29/19 [History] Sertraline [Zoloft] 100 mg PO DAILY 03/29/19 [History] Ciprofloxacin [Cipro] 500 mg PO BID #13 tablet 04/01/19 [Rx] metroNIDAZOLE [Flagyl] 500 mg PO TID #20 tablet 04/01/19 [Rx] Allergies/Adverse Reactions: Allergy/AdvReac Type Severity Reaction Status Date / Time No Known Allergies Allergy Verified 03/28/19 19:55 Date of admission: 03/28/19 22:45 Primary care physician: Lion Gutierrez Colopy Consults: 03/28/19 22:00 Consult to Surgery [CONS] Stat Consulting Provider: Ronaldo Land Reason for Consult: Complicated diverticulitis with perforation and 3cm abscess near sigmoid colon Time Notified: 22:01 Call Completed: Yes 03/29/19 00:14 Consult to Nutrition [CONS] Routine Comment: Consulting Provider: NUTRITION Reason for Dietary Consult: Other Other:: Severe malnutrition. Discharging clinician: Bossman Kong Anticipated date of discharge: 04/01/19 - Constitutional Vitals: Temp Pulse Resp BP Pulse Ox 98.2 F 66 16 107/67 93 04/01/19 07:13 04/01/19 07:13 04/01/19 07:13 04/01/19 07:13 04/01/19 07:13 General appearance: Present: A&O X 3, no acute distress, answers questions appropriately Exam: General: Alert and oriented, no physical distress, able to follow commands. Respiratory: Normal vesicular breathing, no added sounds, breathing equal in both sides. CVS: Normal heart sounds, no murmurs, regular rhthm, no edema Extremities: No peripheral edema, peripheral pulses intact. Lymph nodes: No lymphadenopathy Gastrointestinal: Soft, non tender, non rigid. No distention noted. No rigidity, no rebound tenderness Genitourinary: No paravertebral tenderness. Skin: No rash, ulcers or wound. Neurological: Alert and oriented. No focal deficits. Cranial nerves II-XII intact. - Patient Status Disposition: Home, Self-Care Condition: Good Functional capacity at discharge: independent ambulation Overall status at discharge: patient is back to baseline - Ambulatory Orders Ambulatory Orders: CT abd pelvis w iv and oral [CT] Time Frame: 1 Week, Facility: [facility], Location: Radiology - Discharge Instructions Follow Up With: Lion Graves DO [Primary Care Provider] - Ronaldo Land MD [Partnered Physician] - 04/12/19 2:05 pm - Diet and Activity Activity: resume usual activities as tolerated Diet: advance to your usual diet
[2019-04-02 06:15] VITALS: BP 134/80
== END 2019-04-01 10:55 | disposition home or self-care (01) | DRG 391 ==
LOC: EMEROOARM 19:43 → SUATTDRO 22:45 → 3ANU 22:45
PROVIDERS: ADMIT Family Medicine; ATTEND Family Medicine

== ENCOUNTER 2019-04-27 09:07 | Inpatient (IN) ==
[2019-04-27] MEDS ORDERED: Acetaminophen IV 1,000 MG/100 ML INFUS..BTL IVPB ONE (09:31)
[2019-04-27] MEDS ORDERED: cefOXitin 2,000 MG in Water for inj. (sterile) 20 ML IVP ONE (09:38)
[2019-04-27] MEDS ORDERED: *HR* HYDROmorphone (PF) 1 MG/ML SYRINGE IVP PRN (09:42)
[2019-04-27] MEDS ORDERED: Albuterol 2.5 MG/3 ML NEBULIZER IH PRN (09:42)
[2019-04-27] MEDS ORDERED: Ondansetron 4 MG/2 ML VIAL IVP ONE (09:42)
[2019-04-27] MEDS ORDERED: *HR* OxyCODONE Immed Rel 5 MG TABLET PO PRN (09:42)
[2019-04-27] MEDS ORDERED: *HR* Promethazine 25 MG/ML VIAL IVP PRN (09:42)
[2019-04-27] MEDS ORDERED: *HR* Meperidine 25 MG/ML SYRINGE IVP PRN (09:42)
[2019-04-27] MEDS ORDERED: *HR* Rocuronium Bromide 50 MG/5 ML VIAL ONE ×2 (09:43→11:37)
[2019-04-27] MEDS ORDERED: Dexamethasone 4 MG/ML VIAL ONE (09:43)
[2019-04-27] MEDS ORDERED: *HR* FentaNYL (PF) 100 MCG/2 ML VIAL ONE (09:43)
[2019-04-27] MEDS ORDERED: Lidocaine -MPF 4% 5 ML AMPUL ONE (09:43)
[2019-04-27] MEDS ORDERED: Lidocaine -MPF 2% 2 ML VIAL ONE ×2 (09:43→11:54)
[2019-04-27] MEDS ORDERED: *HR* Propofol 200 MG/20 ML VIAL IVP ONE (09:44)
[2019-04-27] MEDS ORDERED: Ringers Solution, Lactated 1,000 ML IVC SCH (09:45)
[2019-04-27] MEDS ORDERED: CefOXitin 1,000 MG VIAL ONE (09:46)
[2019-04-27] MEDS ORDERED: *HR* HYDROMORPHONE 2 MG/ML VIAL ONE ×2 (11:08→11:52)
[2019-04-27] MEDS ORDERED: ROPIVACAINE/PF/NS 0.25% 1 EACH SYRINGE INTRAART ONE (12:39)
[2019-04-27] MEDS ORDERED: *HR* Dextrose 50 % in Water (Syg) 50 ML SYRINGE IVP PRN (15:22)
[2019-04-27] MEDS ORDERED: D5% in Water 1,000 ML IVC PRN (15:22)
[2019-04-27] MEDS ORDERED: Naloxone 0.4 MG/ML INJ IVP PRN (15:22)
[2019-04-27] MEDS ORDERED: Morphine Sulfate Oral CONC 10 MG/0.5 ML ORAL.SYG SL PRN (15:22)
[2019-04-27] MEDS ORDERED: Dextrose Gel 15 GM/37.5 ML TUBE PO PRN ×2 (15:22)
[2019-04-27] MEDS ORDERED: Ondansetron 4 MG/2 ML VIAL IVP PRN (15:22)
[2019-04-27] MEDS: cefOXitin 1,000 MG in Water for inj. (sterile) 10 ML IVP SCH (18:04)
[2019-04-27] MEDS: 0.9 % Sodium Chloride 1,000 ML IVC SCH (18:05)
[2019-04-27] MEDS: Insulin LISPRO 300 UNITS/3 ML VIAL SQ SCH (18:05)
[2019-04-27] MEDS: Acetaminophen IV 1,000 MG/100 ML INFUS..BTL IVPB SCH (18:06)
[2019-04-27] MEDS: Ketorolac 15 MG/ML VIAL IVP SCH (18:06)
[2019-04-28] MEDS: Insulin LISPRO 300 UNITS/3 ML VIAL SQ SCH ×4 (00:18→21:04)
[2019-04-28] MEDS: cefOXitin 1,000 MG in Water for inj. (sterile) 10 ML IVP SCH ×3 (00:20→18:23)
[2019-04-28] MEDS: Acetaminophen IV 1,000 MG/100 ML INFUS..BTL IVPB SCH ×4 (00:22→18:22)
[2019-04-28] MEDS: Ketorolac 15 MG/ML VIAL IVP SCH ×4 (00:28→18:24)
[2019-04-28 03:52] LABS: Basophils % 0.1 %; Hematocrit 24.5 % (35.3-44.9); Hemoglobin 7.1 g/dL (11.5-15.4); Immature Granulocytes % 1.2 % (0-4); Lymphocytes # 0.6 K/mcL (0.6-4.6); Lymphocytes % 5.7 %; Mean Corpuscular Hemoglobin 22.3 pg (28.0-33.3); Mean Platelet Volume 9.5 fL (9.4-12.4); Monocytes # 0.5 K/mcL (0.0-1.3); Monocytes % 4.7 %; Neutrophils # 9.7 K/mcL (1.6-8.9); Platelet Count 352 K/mcL (140-400); Red Blood Count 3.18 M/mcL (3.82-4.97); Red Cell Distribution Width 16.3 % (11.5-14.5); Segmented Neutrophils % 88.3 %
[2019-04-28 04:13] LABS: BUN/Creatinine Ratio 20 (6-26); Blood Urea Nitrogen 10 mg/dL (8-23); Calcium 8.4 mg/dL (8.6-10.3); Carbon Dioxide 24 mEq/L (23-29); Chloride 109 mEq/L (98-107); Glucose 129 mg/dL (70-105); Osmolality,Calculated 293 (280-300); Potassium 3.7 mEq/L (3.5-5.1); Sodium 141 mEq/L (136-145); eGFR For African Americans > 60 (> 60); eGFR For Non-African Americans > 60 (> 60)
[2019-04-28 04:25] LABS: Carcinoembryonic Antigen 1.5 ng/mL (Less than 5.0)
[2019-04-28] MEDS: 0.9 % Sodium Chloride 1,000 ML IVC SCH (09:15)
[2019-04-28] MEDS: *HR* Heparin 5,000 UNIT/ML VIAL SQ SCH ×2 (14:25→20:25)
[2019-04-28] MEDS ORDERED: 0.9 % Sodium Chloride 1,000 ML IVC SCH (15:14)
[2019-04-29] MEDS: cefOXitin 1,000 MG in Water for inj. (sterile) 10 ML IVP SCH ×3 (00:52→17:16)
[2019-04-29] MEDS: Ketorolac 15 MG/ML VIAL IVP SCH ×4 (00:53→17:17)
[2019-04-29] MEDS: Acetaminophen IV 1,000 MG/100 ML INFUS..BTL IVPB SCH ×4 (00:53→17:25)
[2019-04-29] MEDS: *HR* Heparin 5,000 UNIT/ML VIAL SQ SCH ×2 (05:11→17:17)
[2019-04-29 06:11] LABS: Basophils % 0.2 %; Eosinophils # 0.1 K/mcL (0.0-0.6); Eosinophils % 0.7 %; Hematocrit 22.5 % (35.3-44.9); Hemoglobin 6.9 g/dL (11.5-15.4); Immature Granulocytes % 1.1 % (0-4); Lymphocytes # 0.8 K/mcL (0.6-4.6); Lymphocytes % 8.6 %; Mean Corpuscular HGB Conc 30.7 g/dL (31.6-35.5); Mean Corpuscular Hemoglobin 23.1 pg (28.0-33.3); Mean Corpuscular Volume 75.3 fL (83.0-100.0); Mean Platelet Volume 9.4 fL (9.4-12.4); Monocytes # 0.3 K/mcL (0.0-1.3); Monocytes % 2.9 %; Neutrophils # 7.6 K/mcL (1.6-8.9); Platelet Count 334 K/mcL (140-400); Red Blood Count 2.99 M/mcL (3.82-4.97); Red Cell Distribution Width 16.5 % (11.5-14.5); Segmented Neutrophils % 86.5 %; White Blood Count 8.8 K/mcL (4.3-11.1)
[2019-04-29 06:35] LABS: BUN/Creatinine Ratio 23 (6-26); Blood Urea Nitrogen 10 mg/dL (8-23); Carbon Dioxide 24 mEq/L (23-29); Chloride 109 mEq/L (98-107); Glucose 90 mg/dL (70-105); Osmolality,Calculated 289 (280-300); Potassium 3.5 mEq/L (3.5-5.1); Sodium 140 mEq/L (136-145); eGFR For African Americans > 60 (> 60); eGFR For Non-African Americans > 60 (> 60)
[2019-04-29] MEDS: Insulin LISPRO 300 UNITS/3 ML VIAL SQ SCH ×4 (08:53→20:43)
[2019-04-29] MEDS ORDERED: *HR* OxyCODONE/APAP 5/325 TABLET PO PRN (10:23)
[2019-04-30] MEDS: Acetaminophen IV 1,000 MG/100 ML INFUS..BTL IVPB SCH ×3 (00:32→11:54)
[2019-04-30] MEDS: Ketorolac 15 MG/ML VIAL IVP SCH ×3 (00:32→11:54)
[2019-04-30] MEDS: cefOXitin 1,000 MG in Water for inj. (sterile) 10 ML IVP SCH ×2 (00:33→08:26)
[2019-04-30 05:29] LABS: Basophils % 0.3 %; Monocytes % 3.4 %
[2019-04-30 05:31] LABS: Eosinophils # 0.1 K/mcL (0.0-0.6); Eosinophils % 1.4 %; Hematocrit 24.5 % (35.3-44.9); Hemoglobin 7.3 g/dL (11.5-15.4); Immature Granulocytes % 1.4 % (0-4); Lymphocytes # 0.6 K/mcL (0.6-4.6); Lymphocytes % 7.9 %; Mean Corpuscular HGB Conc 29.8 g/dL (31.6-35.5); Mean Corpuscular Hemoglobin 22.4 pg (28.0-33.3); Mean Corpuscular Volume 75.2 fL (83.0-100.0); Mean Platelet Volume 9.8 fL (9.4-12.4); Monocytes # 0.3 K/mcL (0.0-1.3); Neutrophils # 6.3 K/mcL (1.6-8.9); Platelet Count 378 K/mcL (140-400); Red Blood Count 3.26 M/mcL (3.82-4.97); Red Cell Distribution Width 16.5 % (11.5-14.5); Segmented Neutrophils % 85.6 %; White Blood Count 7.3 K/mcL (4.3-11.1)
[2019-04-30 05:50] LABS: BUN/Creatinine Ratio 18 (6-26); Blood Urea Nitrogen 7 mg/dL (8-23); Calcium 8.1 mg/dL (8.6-10.3); Carbon Dioxide 23 mEq/L (23-29); Chloride 109 mEq/L (98-107); Glucose 112 mg/dL (70-105); Osmolality,Calculated 293 (280-300); Potassium 3.4 mEq/L (3.5-5.1); Sodium 142 mEq/L (136-145); eGFR For African Americans > 60 (> 60); eGFR For Non-African Americans > 60 (> 60)
[2019-04-30] MEDS: *HR* Heparin 5,000 UNIT/ML VIAL SQ SCH (06:05)
[2019-04-30 06:32] LABS: Anisocytosis 1+ (Not Present); Microcytosis Present (Not Present); Platelet Estimate Normal (Normal); Polychromasia 1+ (Not Present)
[2019-04-30] MEDS: Insulin LISPRO 300 UNITS/3 ML VIAL SQ SCH ×2 (07:34→11:39)
[2019-04-30] MEDS ORDERED: Aspirin Enteric Coated 81 MG Tablet PO SCH (09:00)
[2019-04-30 10:59] VITALS: BP 127/73
== END 2019-04-30 16:13 | disposition home health service (06) | DRG 331 ==
LOC: SAMDAY 09:07 → 3ANU 15:20
PROVIDERS: ADMIT Surgery; ATTEND Surgery

== ENCOUNTER 2020-02-01 10:10 | Inpatient (IN) ==
[2020-02-01] MEDS ORDERED: cefOXitin 2,000 MG in Water for inj. (sterile) 20 ML IVP ONE (10:29)
[2020-02-01] MEDS ORDERED: Ringers Solution, Lactated 1,000 ML IVC SCH (10:30)
[2020-02-01] MEDS ORDERED: *HR* FentaNYL (PF) 100 MCG/2 ML VIAL ONE (11:24)
[2020-02-01] MEDS ORDERED: *HR* Midazolam HCl 2 MG/2 ML VIAL ONE (11:24)
[2020-02-01] MEDS ORDERED: *HR* Propofol 200 MG/20 ML VIAL IVP ONE (11:24)
[2020-02-01] MEDS ORDERED: Lidocaine HCL 4 ML Topical Solution (Laryng-O-Jet Kit Sterile Pak) TP ONE (11:27)
[2020-02-01] MEDS ORDERED: *HR* Succinylcholine 200 MG/10 ML VIAL IVP ONE (11:28)
[2020-02-01] MEDS ORDERED: Lidocaine -MPF 2% 2 ML VIAL ONE (11:28)
[2020-02-01] MEDS ORDERED: *HR* Rocuronium Bromide 50 MG/5 ML VIAL ONE ×2 (11:28→14:23)
[2020-02-01] MEDS ORDERED: Ondansetron 4 MG/2 ML VIAL ONE (11:28)
[2020-02-01] MEDS ORDERED: Dexamethasone 4 MG/ML VIAL ONE (11:28)
[2020-02-01] MEDS ORDERED: CefOXitin 2,000 MG VIAL ONE ×2 (12:47→17:43)
[2020-02-01] MEDS ORDERED: *HR* PHENYLEPHRINE 1,000 MCG/10 ML SYRINGE IVP ONE (12:48)
[2020-02-01] MEDS ORDERED: Neostigmine Methylsulfate 3 MG/3 ML SYRINGE ONE (17:02)
[2020-02-01] MEDS ORDERED: *HR* HYDROMORPHONE 2 MG/ML VIAL ONE (17:07)
[2020-02-01] MEDS ORDERED: Ondansetron 4 MG/2 ML VIAL IVP PRN (18:51)
[2020-02-01] MEDS ORDERED: Morphine Sulfate Oral CONC 10 MG/0.5 ML ORAL.SYG SL PRN (18:51)
[2020-02-01] MEDS ORDERED: D5% in Water 1,000 ML IVC PRN (18:51)
[2020-02-01] MEDS ORDERED: *HR* OxyCODONE Immed Rel 5 MG TABLET PO PRN (18:51)
[2020-02-01] MEDS ORDERED: 0.9 % Sodium Chloride 1,000 ML IVC SCH (18:51)
[2020-02-01] MEDS ORDERED: *HR* Dextrose 50 % in Water (Vial) 50 ML VIAL IVP PRN (18:51)
[2020-02-01] MEDS ORDERED: Naloxone 0.4 MG/ML INJ IVP PRN (18:51)
[2020-02-01] MEDS ORDERED: Dextrose Gel 15 GM/37.5 ML TUBE PO PRN ×2 (18:51)
[2020-02-01] MEDS: Acetaminophen IV 1,000 MG/100 ML BAG IVPB SCH (20:25)
[2020-02-01] MEDS: Insulin LISPRO 300 UNITS/3 ML VIAL SQ SCH (22:58)
[2020-02-01] MEDS: *HR* Heparin 5,000 UNIT/ML VIAL SQ SCH (22:59)
[2020-02-02] MEDS: cefOXitin 1,000 MG in Water for inj. (sterile) 10 ML IVP SCH ×3 (00:29→17:28)
[2020-02-02] MEDS: Insulin LISPRO 300 UNITS/3 ML VIAL SQ SCH ×4 (00:31→17:26)
[2020-02-02] MEDS: Acetaminophen IV 1,000 MG/100 ML BAG IVPB SCH ×4 (00:37→18:59)
[2020-02-02] MEDS: *HR* Heparin 5,000 UNIT/ML VIAL SQ SCH ×2 (05:54→17:26)
[2020-02-02 06:49] LABS: Basophils % 0.1 %; Hematocrit 36.5 % (35.3-44.9); Hemoglobin 12.3 g/dL (11.5-15.4); Immature Granulocytes % 0.5 % (0-4); Lymphocytes # 0.9 K/mcL (0.6-4.6); Lymphocytes % 9.9 %; Mean Corpuscular HGB Conc 33.7 g/dL (31.6-35.5); Mean Corpuscular Hemoglobin 31.1 pg (28.0-33.3); Mean Corpuscular Volume 92.4 fL (83.0-100.0); Mean Platelet Volume 10.6 fL (9.4-12.4); Monocytes # 0.6 K/mcL (0.0-1.3); Neutrophils # 7.8 K/mcL (1.6-8.9); Platelet Count 149 K/mcL (140-400); Red Blood Count 3.95 M/mcL (3.82-4.97); Red Cell Distribution Width 12.9 % (11.5-14.5); Segmented Neutrophils % 83.5 %; White Blood Count 9.3 K/mcL (4.3-11.1)
[2020-02-02 07:04] LABS: BUN/Creatinine Ratio 17 (6-26); Blood Urea Nitrogen 14 mg/dL (8-23); Calcium 8.2 mg/dL (8.6-10.3); Carbon Dioxide 23 mEq/L (23-29); Chloride 107 mEq/L (98-107); Glucose 106 mg/dL (70-105); Osmolality,Calculated 287 (280-300); Sodium 138 mEq/L (136-145); eGFR For African Americans > 60 (> 60); eGFR For Non-African Americans > 60 (> 60)
[2020-02-03] MEDS: Acetaminophen IV 1,000 MG/100 ML BAG IVPB SCH ×5 (00:20→23:24)
[2020-02-03] MEDS: Insulin LISPRO 300 UNITS/3 ML VIAL SQ SCH ×4 (00:41→17:21)
[2020-02-03] MEDS: *HR* Heparin 5,000 UNIT/ML VIAL SQ SCH ×2 (05:42→17:20)
[2020-02-03] MEDS ORDERED: Insulin LISPRO 300 UNITS/3 ML VIAL SQ SCH (21:00)
[2020-02-04] MEDS: Acetaminophen IV 1,000 MG/100 ML BAG IVPB SCH (05:59)
[2020-02-04] MEDS: *HR* Heparin 5,000 UNIT/ML VIAL SQ SCH (05:59)
[2020-02-04 08:09] VITALS: BP 110/72
[2020-02-04 08:30] LABS: Basophils % 0.5 %; Eosinophils # 0.1 K/mcL (0.0-0.6); Hematocrit 33.8 % (35.3-44.9); Hemoglobin 11.5 g/dL (11.5-15.4); Immature Granulocytes % 0.2 % (0-4); Lymphocytes # 0.9 K/mcL (0.6-4.6); Lymphocytes % 15.2 %; Mean Corpuscular Hemoglobin 31.8 pg (28.0-33.3); Mean Corpuscular Volume 93.4 fL (83.0-100.0); Mean Platelet Volume 10.5 fL (9.4-12.4); Monocytes # 0.3 K/mcL (0.0-1.3); Monocytes % 4.6 %; Neutrophils # 4.6 K/mcL (1.6-8.9); Platelet Count 122 K/mcL (140-400); Red Blood Count 3.62 M/mcL (3.82-4.97); Red Cell Distribution Width 12.9 % (11.5-14.5); Segmented Neutrophils % 77.5 %; White Blood Count 5.9 K/mcL (4.3-11.1)
[2020-02-04 08:49] LABS: BUN/Creatinine Ratio 13 (6-26); Blood Urea Nitrogen 7 mg/dL (8-23); Calcium 8.7 mg/dL (8.6-10.3); Carbon Dioxide 23 mEq/L (23-29); Chloride 108 mEq/L (98-107); Glucose 154 mg/dL (70-105); Osmolality,Calculated 285 (280-300); Potassium 3.5 mEq/L (3.5-5.1); Sodium 137 mEq/L (136-145); eGFR For African Americans > 60 (> 60); eGFR For Non-African Americans > 60 (> 60)
[2020-02-04] MEDS ORDERED: Aspirin Enteric Coated 81 MG Tablet PO SCH (09:00)
[2020-02-04] MEDS ORDERED: *HR* GlyBURIDE 5 MG TABLET PO SCH (09:00)
[2020-02-04] MEDS ORDERED: *HR* Metformin 500 MG TABLET PO SCH (09:00)
[2020-02-04] MEDS: Insulin LISPRO 300 UNITS/3 ML VIAL SQ SCH (11:22)
== END 2020-02-04 13:29 | disposition home or self-care (01) | DRG 331 ==
LOC: SAMDAY 10:10 → 3ANU 19:02
PROVIDERS: ADMIT Surgery; ATTEND Surgery